=== PATIENT | female | born 1945 | race Caucasian/White ===

== ENCOUNTER → 2016-03-19 | Outpatient (CLI) | payer BC ==
[~2016-03-19] MED LIST: AMOX875T PO; ASCO500T16 PO; AZEL15GE TOP; BUPR100T8 PO; BUPRTAB PO; CHOL100010 PO; FNCG50 TOP; OMEG10007 PO
[2016-03-19 11:35] LABS: BLOOD UREA NITROGEN 17 mg/dl (7-18); BUN/CREATININE RATIO 15.8 (10-20); CALCIUM 9.1 mg/dl (8.5-10.1); CARBON DIOXIDE 27 mmol/L (21-32); CHLORIDE 105 mmol/L (98-107); GLUCOSE 102 mg/dl (70-99); POTASSIUM 3.7 mmol/L (3.5-5.1); SODIUM 139 mmol/L (136-145)
[2016-03-19 11:45] LABS: CHOLESTEROL 199 mg/dl (0-200); CHOLESTEROL/HDL RATIO 3.8; HDL CHOLESTEROL 53 mg/dl; LDL CHOLESTEROL CALCULATED 117 mg/dl; TRIGLYCERIDES 144 mg/dl (0-150); VERY LOW DENSITY LIPOPROT CALC 29 mg/dl
== END | disposition home or self-care (01) ==
LOC: C.LAB1850 10:20
PROVIDERS: ATTEND Internal Medicine Nephrology
DX: E78.5 Hyperlipidemia, unspecified (principal); N18.3 Chronic kidney disease, stage 3 (moderate); M85.80 Other specified disorders of bone density and structure, unspecified site

== ENCOUNTER 2016-09-02 22:13 | Inpatient (IN) | payer BC, OTHER ==
[~2016-09-02] VITALS: Ht 167.6 cm; Wt 68.2 kg
[~2016-09-02 22:13] MED LIST changes: -AMOX875T PO; -FNCG50 TOP
[2016-09-02 22:15] VITALS: Ht 167.6 cm; Wt 68.2 kg
[2016-09-02] MEDS ORDERED: FNCG50 TOP (22:39)
[2016-09-02 22:57] LABS: URINE APPEARANCE CLEAR (CLEAR); URINE BILIRUBIN NEG (NEG); URINE COLOR YELLOW; URINE EPITHELIAL CELL AUTO 0-5 /lpf (0-5); URINE NITRITE NEG (NEG); URINE SPECIFIC GRAVITY 1.015 (1.000-1.030); UROBILINOGEN NEG (NEG); ZZUR CULT IF INDIC CLEAN CATCH NO
[2016-09-02 22:58] LABS: MANUAL MICROSCOPIC REQUIRED? NO; REVIEW REQ? NO
[2016-09-02 22:58] LABS: BASO % 0.3 %; BASO ABS # 0.04 K/uL (0-0.2); COMPLETE YES; EOS % 1.7 %; HEMATOCRIT 39.6 % (37-47); IG% 0.2 %; LYMPH % 16.5 %; LYMPH ABS # 2.18 K/uL (1.2-3.4); MEAN CELL VOLUME 93.4 fL (80-100); MEAN CORPUSCULAR HEMOGLOBIN 31.6 pg (25-34); MEAN CORPUSCULAR HGB CONC 33.8 g/dl (32-36); MEAN PLATELET VOLUME 11.1 fL (7.4-10.4); MONO % 6.5 %; NEUT % 74.8 %; PLATELET COUNT 283 K/uL (130-400); RED BLOOD COUNT 4.24 M/uL (4.2-5.4); WHITE BLOOD COUNT 13.24 K/uL (4.8-10.8)
--- NOTE | 2016-09-02 23:03 | DIAGNOSTIC IMAGING REPORT ---
ABDOMEN 2VIEW W/PA CHEST RTN CLINICAL HISTORY: abd pain, diarrhea FEVER, BODY ACHES COMPARISON STUDY: 03/14/2013 FINDINGS: Erect chest reveals emphysema. As a hiatal hernia. There is no focal pulmonary consolidation. Wispy opacities in the left midlung zone are likely chronic.] Supine views the abdomen reveal no abnormally dilated loops of large or small bowel. There are no transition zones indicate bowel obstruction. There are few tiny calcifications projected over the right renal shadow. Small calculi cannot be excluded. IMPRESSION: No evidence of bowel obstruction. No evidence of free air. Electronically signed by: Que Toledo M.D. 09/02/2016 11:01 PM Dictated Date/Time: 09/02/2016 11:00 PM
[2016-09-02 23:16] LABS: BUN/CREATININE RATIO 15.7 (10-20); CALCIUM 8.7 mg/dl (8.5-10.1); CREATININE 1.2 mg/dl (0.60-1.20); POTASSIUM 3.5 mmol/L (3.5-5.1)
[2016-09-02 23:19] LABS: ALB/GLOB RATIO 0.9 (0.9-2)
[2016-09-03] VITALS (8 sets, daily range): BP systolic 81–116; BP diastolic 49–71; PULSE 83–98; TEMP 36.7–38.4; O2SAT 93–97; BMI 24.6
--- NOTE | 2016-09-03 00:03 | EMERGENCY ROOM VISIT NOTE ---
History First contact with patient: 22:22 Chief Complaint: ABDOMINAL PAIN Stated Complaint: ABD/LOW BACK/PELVIC PAIN,FEVER,BODY ACHES Nursing Triage Summary: Patient ambulatory to triage for evaluation. Gait is steady and upright. Patient states "I was at the [facility] earlier today. I have had GI symptoms and abdominal pain for a few weeks. I have had a low grade fever today. I thought I had a left ear ache/infection and I have had some body aches. I have had pretty severe abdominal pains; if I strain to have a BM, the pain is unbelieveable. I have rectal pain and lower back pain tonight." Patient denies nausea, vomiting. Patient reports hemorrhoids and thin BMs when she is able to go. Patient's last BM was three days ago, patient states "I am not constipated though." History of Present Illness The patient is a 71 year old female who presents to the Emergency Room with complaints of abdominal pain. The patient states that she has had symptoms intermittently for the past several months but have been worsening over the past 3 weeks. She states that for the past 3 days, she has had severe pain with bowel movements. She has both rectal pain and lower abdominal pain with bowel movements. She states that her bowel movements have been a thin stream. She has an appointment with her primary care provider tomorrow for the symptoms. However, she states that her pain worsened today which prompted her to come here. She reports she has been nauseous at times, but denies any nausea at this time. She has had a few episodes of having a small amount of blood in the bowel movements. She has stage III chronic kidney disease but states she is otherwise healthy. She reports she has had a left earache today. She denies any fevers or urinary symptoms. She rates her current discomfort a 1/10. She denies any history of abdominal surgery. Review of Systems A complete 10 point review of systems was reviewed with the patient with pertinent positives and negatives as per history of present illness. All else were negative. Past Medical/Surgical History Medical Problems: (1) Excisional biopsies of the breast (2) Gallstones (3) Uterine polypectomy Family History FHx: diabetes FHx: hypertension Social History Smoking Status: Never Smoker Alcohol Use: occasionally Drug Use: none Marital Status: Occupation Status: employed Current/Historical Medications Scheduled Azelaic Acid (Finacea), 1 APPLN TOP DAILY Bupropion Hcl (Wellbutrin Xl), 1 TAB PO QAM Allergies Coded Allergies: No Known Allergies (Unverified , 09/02/16) Physical Exam Vital Signs Date Time Temp Pulse Resp B/P (MAP) Pulse Ox O2 Delivery O2 Flow Rate FiO2 09/03/16 01:01 94 20 139/73 96 Room Air 09/02/16 23:52 86 20 120/63 97 Room Air 09/02/16 22:15 36.7 100 18 126/80 93 Room Air Physical Exam VITALS: Vitals are noted on the nurse's note and reviewed by myself. Vital signs stable. GENERAL: This is a 71-year-old female, in no acute distress, nondiaphoretic, well-developed well-nourished. SKIN: No pallor, no rashes. HEENT: Normocephalic. PERRLA. EOMI. bilateral tympanic membranes are pearly garcia without erythema or effusion. Mucous membranes moist. HEART: Regular rate and rhythm without murmurs gallops or rubs. LUNGS: Clear to auscultation bilaterally without wheezes, rales or rhonchi. No retractions or accessory muscle use. ABDOMEN: Positive bowel sounds x 4. Soft, mild tenderness to palpation of the left lower quadrant. No guarding or rebound tenderness. RECTAL: There are a few external hemorrhoids which are not thrombosed. Digital rectal exam unremarkable. No blood. NEURO: Patient was alert and oriented to person place and time. Medical Decision & Procedures ER Provider Diagnostic Interpretation: ABDOMEN 2VIEW W/PA CHEST RTN FINDINGS: Erect chest reveals emphysema. As a hiatal hernia. There is no focal pulmonary consolidation. Wispy opacities in the left midlung zone are likely chronic.] Supine views the abdomen reveal no abnormally dilated loops of large or small bowel. There are no transition zones indicate bowel obstruction. There are few tiny calcifications projected over the right renal shadow. Small calculi cannot be excluded. IMPRESSION: No evidence of bowel obstruction. No evidence of free air. CT ABDOMEN & PELVIS: (statrad interpretation) Diverticulosis with wall thickening and inflammatory changes involving the distal sigmoid colon compatible with diverticulitis. Air-containing outpouching at the anterior aspect possible prominent diverticulum possibility of contained perforation or early abscess not entirely excluded. No disseminated free air. No drainable fluid collections. Cholelithiasis. Moderate hiatal hernia. Additional incidental findings. Radiologist: Stacy Kirk MD Laboratory Results 09/02/16 22:40 Red Blood Count 4.24, Mean Corpuscular Volume 93.4, Mean Corpuscular Hemoglobin 31.6, Mean Corpuscular Hemoglobin Concent 33.8, Mean Platelet Volume 11.1, Neutrophils (%) (Auto) 74.8, Lymphocytes (%) (Auto) 16.5, Monocytes (%) (Auto) 6.5, Eosinophils (%) (Auto) 1.7, Basophils (%) (Auto) 0.3, Neutrophils # (Auto) 9.90, Lymphocytes # (Auto) 2.18, Monocytes # (Auto) 0.86, Eosinophils # (Auto) 0.23, Basophils # (Auto) 0.04 09/02/16 22:40 Test 09/02/16 22:30 09/02/16 22:40 Urine Color YELLOW Urine Appearance CLEAR (CLEAR) Urine pH 6.0 (4.5-7.5) Urine Specific [place] 1.015 (1.000-1.030) Urine Protein NEG (NEG) Urine Glucose (UA) NEG (NEG) Urine Ketones TRACE (NEG) Urine Occult Blood TRACE (NEG) Urine Nitrite NEG (NEG) Urine Bilirubin NEG (NEG) Urine Urobilinogen NEG (NEG) Urine Leukocyte Esterase NEG (NEG) Urine WBC (Auto) 1-5 /hpf (0-5) Urine RBC (Auto) 0-4 /hpf (0-4) Urine Hyaline Casts (Auto) 0 /lpf (0-5) Urine Epithelial Cells (Auto) 0-5 /lpf (0-5) Urine Bacteria (Auto) NEG (NEG) White Blood Count 13.24 K/uL (4.8-10.8) Red Blood Count 4.24 M/uL (4.2-5.4) Hemoglobin 13.4 g/dL (12.0-16.0) Hematocrit 39.6 % (37-47) Mean Corpuscular Volume 93.4 fL (80-100) Mean Corpuscular Hemoglobin 31.6 pg (25-34) Mean Corpuscular Hemoglobin Concent 33.8 g/dl (32-36) Platelet Count 283 K/uL (130-400) Mean Platelet Volume 11.1 fL (7.4-10.4) Neutrophils (%) (Auto) 74.8 % Lymphocytes (%) (Auto) 16.5 % Monocytes (%) (Auto) 6.5 % Eosinophils (%) (Auto) 1.7 % Basophils (%) (Auto) 0.3 % Neutrophils # (Auto) 9.90 K/uL (1.4-6.5) Lymphocytes # (Auto) 2.18 K/uL (1.2-3.4) Monocytes # (Auto) 0.86 K/uL (0.11-0.59) Eosinophils # (Auto) 0.23 K/uL (0-0.5) Basophils # (Auto) 0.04 K/uL (0-0.2) RDW Standard Deviation 43.4 fL (36.4-46.3) RDW Coefficient of Variation 12.7 % (11.5-14.5) Immature Granulocyte % (Auto) 0.2 % Immature Granulocyte # (Auto) 0.03 K/uL (0.00-0.02) Anion Gap 9.0 mmol/L (3-11) Est Creatinine Clear Calc Drug Dose 40.6 ml/min Estimated GFR () 53.4 Estimated GFR (Non- 46.1 BUN/Creatinine Ratio 15.7 (10-20) Calcium Level 8.7 mg/dl (8.5-10.1) Total Bilirubin 0.4 mg/dl (0.2-1) Aspartate Amino Transf (AST/SGOT) 12 U/L (15-37) Alanine Aminotransferase (ALT/SGPT) 20 U/L (12-78) Alkaline Phosphatase 87 U/L (45-117) Total Protein 7.6 gm/dl (6.4-8.2) Albumin 3.5 gm/dl (3.4-5.0) Globulin 4.1 gm/dl (2.5-4.0) Albumin/Globulin Ratio 0.9 (0.9-2) Lipase 172 U/L (73-393) Medications Administered Medications (Trade) Dose Ordered Sig/Salo Route Start Time Stop Time Status Last Admin Dose Admin Ciprofloxacin/ Dextrose (Cipro / D5W) 400 mg NOW STAT IV 09/03/16 01:02 09/03/16 01:03 DC 09/03/16 01:20 400 MG Metronidazole (Flagyl / Nss) 500 mg NOW STAT IV 09/03/16 01:02 09/03/16 01:03 DC 09/03/16 01:20 500 MG ED Course The patient was evaluated as above. Labs were drawn and IV access was obtained. The patient declined analgesics. I recommended CT scan, but the patient prefers not to have this done if possible. I agreed to start with laboratory studies and x-rays and will discuss need for CT after these returned. Abdominal series was unremarkable. Given leukocytosis, I do feel CT is necessary. The patient is agreeable. Patient was reevaluated and findings were discussed. She is agreeable to admission and again declined analgesics. Doses of Cipro and Flagyl were ordered. Case was discussed with the [facility], Dr. Bullock. He agreed to evaluate the patient for admission. Medical Decision Differential diagnosis includes diverticulitis, colitis, intra-abdominal abscess , hemorrhoids appendicitis, urinary tract infection, among others. The patient is a 71-year-old female who presents today complaining of abdominal pain, rectal pain and pain with bowel movements. Labs revealed a leukocytosis of 13,000. Labs are otherwise unremarkable. Patient was initially resistant to having a CT scan performed, but did eventually agree to it. CT was performed with no contrast due to the patient's history of chronic kidney disease and borderline creatinine. CT was read by helena and showed diverticulitis with findings suggestive of a small contained perforation versus abscess. Given this finding, the patient will need to be admitted for IV antibiotics. She was given initial doses of Cipro and Flagyl. Consultation was made with the pharmacist, who felt no renal dosing was needed. All findings were discussed with the patient. She verbalized her understanding. She will be evaluated by the [facility] in the ED for further evaluation. The patient's case was reviewed with Dr. Bonilla, ED attending physician, who agreed with my assessment and treatment plan. Medication reconciliation: I attest that I have personally reviewed the patient 's current medication list. Blood pressure screening: Patient was found to have normal blood pressure on screening and does not require follow-up. Impression Primary Impression: Sigmoid diverticulitis Departure Information Dispostion Admitted as an inpatient Referrals Sher Perez M.D. (PCP) Patient Instructions My [facility]
[2016-09-03] MEDS ORDERED: METRONIDAZOLE 500MG / 100ML NSS IV STA (01:02)
[2016-09-03] MEDS ORDERED: CIPROFLOXACIN 400MG / 200ML D5W IV STA (01:02)
--- NOTE | 2016-09-03 01:24 | EMERGENCY ROOM VISIT NOTE ---
ED Visit Note First contact with patient: 22:22 I have personally evaluated this patient examined her and reviewed the pertinent labs and data. I have discussed the case with Ira Anderson, the physician sales assistant and agree with the plan. Please refer to the PA note. This patient has left lower quadrant pain on my exam she is mildly tender but has no peritonitis. CAT scan was obtained and shows diverticulitis. There is possible early abscess. She looks well on exam however given the possibility of an abscess. I do think she needs IV antibiotics and further treatment and evaluation. We have ordered IV Cipro and IV Flagyl. The [facility] team was consulted to see her in the emergency department.
[2016-09-03] MEDS ORDERED: HYDROCORTISONE HC 2.5% CRM 30GM TUBE EXT PRN (02:00)
[2016-09-03] MEDS ORDERED: MAGNESIUM HYDROXIDE SUSP 30 ML UDC PO PRN (02:00)
[2016-09-03] MEDS ORDERED: ALUMINUM/MAGNESIUM/SIMETH (MAALOX MAX) 30 ML UDC PO PRN (02:00)
[2016-09-03] MEDS ORDERED: MoRPHine SULFATE 4 MG/ML 1 ML CARP\\VIAL IV PRN (02:00)
[2016-09-03] MEDS ORDERED: POLYETHYLENE (MIRALAX) 17 GM PACK PO PRN (02:00)
[2016-09-03] MEDS ORDERED: ANUSOL SUPP 1 EA PR PRN (02:00)
[2016-09-03] MEDS ORDERED: ONDANSETRON INJ 2 MG/ML 2 ML VIAL IV PRN (02:00)
[2016-09-03] MEDS: MoRPHine SULFATE 2 MG/ML CARP IV PRN ×3 (02:16→22:09)
--- NOTE | 2016-09-03 02:55 | History and Physical ---
History & Physical Date & Time of Service: Sep 03, 2016 at 02:29 Chief Complaint: Abd/Low Back/Pelvic Pain,Fever,Body Aches Primary Care Physician: Sher Perez M.D. History of Present Illness Source: patient Patient is a pleasant 71-year-old female, with back on history of CKD stage III , melanoma, anxiety/depression, mild asthma, presents the emergency department tonight with ongoing abdominal pain. She notes that this is not a new pain for her, that it is been on for the past several months. In addition she has had on and off episodes of diarrhea. These were frequent but intermittent and somewhat unpredictable, and was associated with mild lower abdominal pain. However in the past 3 days she notes that the pain has gotten much worse, and that it occurs much more predictably with bowel movements. At the present time she describing pain across her lower abdomen and pelvis, favoring more so left side as well as lower back pain. She describes as a sharp, currently 4 out of 10 pain. She states that at home prior to arrival the pain was getting much worse, rating it 9/10 particularly when she is trying to have bowel movements. She also reports an incomplete sense of voiding after sitting on the toilet for a bowel movement. In addition she reports a rectal discomfort, the states she has hemorrhoids. She does report 2 occasions of only a faint amount of pink tinge on her stool in the past couple days. She denies any dark tarry stool. She denies seeing any mucus in the stool. She denies ongoing nausea or vomiting. She states that she hated a restaurant 2 weeks ago and did have some nausea following that meal but has since been fine from this standpoint. She has not had any fevers chills or night sweats, though states that she feels warm. She's not had any changes in weight. There is no history of recent foreign travel and no recent use of antibiotics. States that she travels frequently between [place] in [place] to care for her daughter who has significant medical needs. She states her last colonoscopy was 10 years ago, this was done by Dr. Eckert. She's never had an EGD. Past Medical/Surgical History Chronic kidney disease Depression/anxiety History of melanoma, with excision 3 History of uterine polypectomy History of in vitro fertilization Medical Problems: (1) Excisional biopsies of the breast Status: Resolved (2) Gallstones Status: Chronic (3) Uterine polypectomy Status: Resolved Family History FHx: diabetes FHx: hypertension Social History Smoking Status: Never Smoker Smokeless Tobacco Use: No Alcohol Use: none Drug Use: none Marital Status: Housing status: lives with significant other Occupational Status: employed (psychologist) Multi-Drug Resistant Organisms History of MDRO: No Allergies Coded Allergies: No Known Allergies (Unverified , 09/02/16) Home Medications Scheduled Azelaic Acid (Finacea), 1 APPLN TOP DAILY Bupropion Hcl (Wellbutrin Xl), 1 TAB PO QAM Review of Systems 10 point review of systems was otherwise negative unless stated above in the history of present illness Physical Exam Vital Signs Date Time Temp Pulse Resp B/P (MAP) Pulse Ox O2 Delivery O2 Flow Rate FiO2 09/03/16 01:01 94 20 139/73 96 Room Air 09/02/16 23:52 86 20 120/63 97 Room Air 09/02/16 22:15 36.7 100 18 126/80 93 Room Air General Appearance: WD/WN, no apparent distress Head: normocephalic, atraumatic Eyes: PERRL, EOMI ENT: hearing grossly normal, pharynx normal, + pertinent finding (no obvious oral ulcers noted) Neck: supple, no adenopathy, no JVD Respiratory/Chest: lungs clear, no respiratory distress Cardiovascular: regular rate, rhythm, no gallop, no murmur Abdomen/GI: normal bowel sounds, soft, + tenderness (left iliac fossa greater than right iliac fossa; no masses; no guarding or rigidity), + pertinent finding (rectal exam per ED, external hemorrhoids, normal rectal examination, findings were not repeated) Back: no CVA tenderness, no muscle spasm Extremities/Musculoskelatal: no calf tenderness, no pedal edema Neurologic/Psych: alert, normal mood/affect, oriented x 3 Skin: normal color, warm/dry, no rash Lymphatic: no adenopathy Diagnostics Laboratory Results Results Past 24 Hours Test 09/02/16 22:30 09/02/16 22:40 Range/Units Urine Color YELLOW Urine Appearance CLEAR CLEAR Urine pH 6.0 4.5-7.5 Urine Specific [place] 1.015 1.000-1.030 Urine Protein NEG NEG Urine Glucose (UA) NEG NEG Urine Ketones TRACE NEG Urine Occult Blood TRACE NEG Urine Nitrite NEG NEG Urine Bilirubin NEG NEG Urine Urobilinogen NEG NEG Urine Leukocyte Esterase NEG NEG Urine WBC (Auto) 1-5 0-5 /hpf Urine RBC (Auto) 0-4 0-4 /hpf Urine Hyaline Casts (Auto) 0 0-5 /lpf Urine Epithelial Cells (Auto) 0-5 0-5 /lpf Urine Bacteria (Auto) NEG NEG White Blood Count 13.24 4.8-10.8 K/uL Red Blood Count 4.24 4.2-5.4 M/uL Hemoglobin 13.4 12.0-16.0 g/dL Hematocrit 39.6 37-47 % Mean Corpuscular Volume 93.4 80-100 fL Mean Corpuscular Hemoglobin 31.6 25-34 pg Mean Corpuscular Hemoglobin Concent 33.8 32-36 g/dl Platelet Count 283 130-400 K/uL Mean Platelet Volume 11.1 7.4-10.4 fL Neutrophils (%) (Auto) 74.8 % Lymphocytes (%) (Auto) 16.5 % Monocytes (%) (Auto) 6.5 % Eosinophils (%) (Auto) 1.7 % Basophils (%) (Auto) 0.3 % Neutrophils # (Auto) 9.90 1.4-6.5 K/uL Lymphocytes # (Auto) 2.18 1.2-3.4 K/uL Monocytes # (Auto) 0.86 0.11-0.59 K/uL Eosinophils # (Auto) 0.23 0-0.5 K/uL Basophils # (Auto) 0.04 0-0.2 K/uL RDW Standard Deviation 43.4 36.4-46.3 fL RDW Coefficient of Variation 12.7 11.5-14.5 % Immature Granulocyte % (Auto) 0.2 % Immature Granulocyte # (Auto) 0.03 0.00-0.02 K/uL Sodium Level 141 136-145 mmol/L Potassium Level 3.5 3.5-5.1 mmol/L Chloride Level 105 98-107 mmol/L Carbon Dioxide Level 27 21-32 mmol/L Anion Gap 9.0 3-11 mmol/L Blood Urea Nitrogen 19 7-18 mg/dl Creatinine 1.20 0.60-1.20 mg/dl Est Creatinine Clear Calc Drug Dose 40.6 ml/min Estimated GFR () 53.4 Estimated GFR (Non- 46.1 BUN/Creatinine Ratio 15.7 10-20 Random Glucose 137 70-99 mg/dl Calcium Level 8.7 8.5-10.1 mg/dl Total Bilirubin 0.4 0.2-1 mg/dl Aspartate Amino Transf (AST/SGOT) 12 15-37 U/L Alanine Aminotransferase (ALT/SGPT) 20 12-78 U/L Alkaline Phosphatase 87 45-117 U/L Total Protein 7.6 6.4-8.2 gm/dl Albumin 3.5 3.4-5.0 gm/dl Globulin 4.1 2.5-4.0 gm/dl Albumin/Globulin Ratio 0.9 0.9-2 Lipase 172 73-393 U/L Diagnostic Radiology ABDOMEN 2VIEW W/PA CHEST RTN CLINICAL HISTORY: abd pain, diarrhea FEVER, BODY ACHES COMPARISON STUDY: 03/14/2013 FINDINGS: Erect chest reveals emphysema. As a hiatal hernia. There is no focal pulmonary consolidation. Wispy opacities in the left midlung zone are likely chronic.] Supine views the abdomen reveal no abnormally dilated loops of large or small bowel. There are no transition zones indicate bowel obstruction. There are few tiny calcifications projected over the right renal shadow. Small calculi cannot be excluded. IMPRESSION: No evidence of bowel obstruction. No evidence of free air. CT abdomen (per stat rad) - Sigmoid diverticulitis\ - Air-containing outpouching Abscess versus contained perforation Impression Assessment and Plan (1) Sigmoid diverticulitis Assessment & Plan: - As noted on CT - Keep the patient nothing by mouth except medications; patient can have small sips of clears but ultimately needs bowel rest - IV Cipro and Flagyl - Morphine 2-4 mg IV every 4 hours when necessary for pain - Normal saline with 20 in the every KCl at 125 ML per hour - I will consult general surgery to follow along given CT report suggesting possible contained perforation, though at this time are not concerned that surgical intervention is required (2) Chronic diarrhea Assessment & Plan: - We'll check a C. difficile - We'll check a stool Gram stain, with ova and parasites - We'll place a consultation for GI, given the chronicity of her symptoms. States that her last colonoscopy was 10 years ago, and had GI's discretion may warrant endoscopy at this time (3) Hemorrhoids Assessment & Plan: - Anusol topical and rectal suppositories when necessary - Patient notes very small self-limited episodes of CA bleeding, as noted in the history We'll order Hemoccult H&H is appear stable, she is currently at her baseline Hb between 12-13 (4) CKD (chronic kidney disease), stage III Assessment & Plan: - Creatinine 1.2, currently at baseline - EGFR 46 - Avoid nephrotoxic medications; contrast imaging only if actually necessary - Monitor daily BMP (5) Depression Assessment & Plan: - Continue Wellbutrin DVT prophylaxis - Heparin 5000 units 3 times a day - SCD Code Status - Level I full code Disposition - Med/Surg Level of Care Med/Surg Resuscitation Status FULL RESUSCITATION VTE Prophylaxis VTE Risk Assessment Done? Y/N: Yes Risk Level: Moderate Given or contraindicated: Unfractionated heparin SQ Note Resident Physician Supervision Note: I was present with Dr. Adorno during the history and exam. I discussed the case with the resident and agree with the findings and plan as documented in the note. Any exceptions or clarifications are listed here: 71 y/o F CKD 3 - unnown etiology - presents with abdominal pain CT reveals sigmoid diverticulitis with possible abscess or perf. OE AAO x 3 CTAB Tender lower quadrants No CCE No deficits P: IVF, NPO Cipro/Flagyl Surgery consult Documented By: Maxx Bullock
[2016-09-03] MEDS: NSS + 20MEQ KCL 1000ML 1,000 ML IV SCH ×3 (03:31→19:38)
[2016-09-03 06:04] LABS: BASO % 0.2 %; BASO ABS # 0.02 K/uL (0-0.2); COMPLETE YES; EOS % 0.8 %; HEMATOCRIT 35.8 % (37-47); IG% 0.3 %; LYMPH % 10.9 %; MEAN CELL VOLUME 94.5 fL (80-100); MEAN CORPUSCULAR HEMOGLOBIN 30.9 pg (25-34); MEAN CORPUSCULAR HGB CONC 32.7 g/dl (32-36); MEAN PLATELET VOLUME 11.2 fL (7.4-10.4); MONO % 6.5 %; NEUT % 81.3 %; PLATELET COUNT 249 K/uL (130-400); RED BLOOD COUNT 3.79 M/uL (4.2-5.4); WHITE BLOOD COUNT 11.92 K/uL (4.8-10.8)
[2016-09-03] MEDS: HEPARIN SOD 5000 UNIT/0.5 ML CARP SQ SCH ×3 (06:05→21:52)
[2016-09-03 06:44] LABS: BUN/CREATININE RATIO 14.6 (10-20); CALCIUM 8.3 mg/dl (8.5-10.1); CREATININE 1.1 mg/dl (0.60-1.20); POTASSIUM 3.9 mmol/L (3.5-5.1)
--- NOTE | 2016-09-03 07:52 | DIAGNOSTIC IMAGING REPORT ---
CT SCAN OF THE ABDOMEN AND PELVIS WITHOUT IV CONTRAST CLINICAL HISTORY: Left lower quadrant abdominal pain. COMPARISON STUDY: Abdominal ultrasound dated 03/14/2013. TECHNIQUE: CT scan of the abdomen and pelvis is performed from the lung bases to the proximal femora. Images are reviewed in the axial, sagittal, and coronal planes. IV contrast was not administered for this examination as per the referring clinician. Note that the examination was performed in suboptimal fashion without oral and IV contrast. Automated dose control exposure was utilized. CT DOSE: 371.77 mGy.cm FINDINGS: Lung bases: The heart is normal in size and without pericardial effusion. The lung bases are clear. There is a moderate hiatal hernia. Liver: The unenhanced liver is normal in size, contour, and attenuation. There is no intrahepatic biliary ductal dilatation. A 10 mm cyst is incidentally noted in the inferior right lobe. Gallbladder: There are small calcified gallstones. The gallbladder is otherwise normal in appearance. Spleen: Normal in size and attenuation. Pancreas: The unenhanced pancreas is grossly unremarkable. Adrenal glands: Unremarkable. Kidneys: The unenhanced kidneys are atrophic and without hydronephrosis. There are no renal calculi identified. There is no evidence of contour deforming renal mass lesion. Abdominal vasculature: The abdominal aorta is normal in course and caliber noting moderate atherosclerotic calcification. Bowel: The small bowel and colon are normal in course and caliber. There is moderate sigmoid diverticulosis. There is wall thickening with significant pericolonic inflammation involving the sigmoid colon consistent with acute diverticulitis. The appendix is not clearly visualized. Peritoneum: There is no intraperitoneal free air or abdominal ascites. There is a small fat-containing umbilical hernia. Lymphadenopathy: None. Pelvic viscera: The bladder, uterus, and adnexa are normal as visualized. Skeletal structures: The skeletal structures are osteopenic. Mild lumbosacral spondylosis is observed. No lytic or blastic lesions are seen. IMPRESSION: 1. Suboptimal examination without oral and IV contrast. 2. Moderate sigmoid diverticulosis with evidence of acute sigmoid diverticulitis. No intraperitoneal free air is identified. There is no definite evidence of abscess on this unenhanced examination. 3. Cholelithiasis. 4. Moderate hiatal hernia. 5. Additional findings as above. Electronically signed by: Corey Espinoza M.D. 09/03/2016 7:50 AM Dictated Date/Time: 09/03/2016 7:45 AM
[2016-09-03] MEDS: BuPROPion XL 150 MG TABCR PO SCH (08:31)
--- NOTE | 2016-09-03 09:17 | Surgery Consultation ---
Consultation Date of Consultation: Sep 03, 2016. Attending Physician: Maxx Bullock M.D. Reason for Consultation: Acute sigmoid diverticulitis (Lana Lorenz PA-C) History of Present Illness Nancie is a pleasant 71 year-old female who presented to emergency department last evening complaining of left lower abdominal pain that was increasing in intensity. States she has had intermittent abdominal pain and cramping with bowel movements for the past month or so but nothing this severe. States pain began three days ago and continued to increase. Had associated diarrhea. Also states she has some rectal pain associated with it. States she does have history of hemorrhoids. States she thought she had a fever due to temp of 101 at home with her thermometer. No fever since admission. Denies of previous episodes of diverticulitis. Last colonoscopy was 10 years ago. Denies of vomiting, vomiting blood, or blood in stools. Had a CT scan of abdomen and pelvis without contrast given stage 3 chronic kidney disease. Shows thickening of the sigmoid colon with pericolonic inflammation consistent with acute diverticulitis. NO discrete abscess can be identified given no contrast. (Lana Lorenz PA-C) Past Medical/Surgical History Medical Problems: (1) Sigmoid diverticulitis Status: Acute (Lana Lorenz PA-C) Family History FHx: diabetes FHx: hypertension (Lana Lorenz PA-C) FHx: diabetes FHx: hypertension (Franki Miguel MD) Social History Smoking Status: Never Smoker Smokeless Tobacco Use: No Alcohol Use: none Drug Use: none Marital Status: Occupation Status: employed (psychologist) (Lana Lorenz PA-C) Allergies Coded Allergies: No Known Allergies (Unverified , 09/02/16) Home Medications Scheduled Azelaic Acid (Finacea), 1 APPLN TOP DAILY Bupropion Hcl (Wellbutrin Xl), 1 TAB PO QAM Current Inpatient Medications Current Inpatient Medications Medications (Trade) Dose Ordered Sig/Salo Route Start Time Stop Time Status Last Admin Dose Admin Heparin Sodium (Porcine) (Heparin Sq 5000 Unit/0.5ml) 5,000 unit Q8H SQ 09/03/16 06:00 10/03/16 05:59 09/03/16 06:05 5,000 UNIT Acetaminophen (Tylenol Tab) 650 mg Q4H PRN PO 09/03/16 02:00 10/03/16 01:59 Al Hydrox/Mg Hydrox/Simethicone (Maalox Max Susp) 15 ml Q4H PRN PO 09/03/16 02:00 10/03/16 01:59 Magnesium Hydroxide (Milk Of Magnesia Susp) 30 ml Q6H PRN PO 09/03/16 02:00 10/03/16 01:59 Polyethylene (Miralax Powder Packet) 17 gm DAILY PRN PO 09/03/16 02:00 10/03/16 01:59 Ondansetron HCl (Zofran Inj) 4 mg Q6H PRN IV 09/03/16 02:00 10/03/16 01:59 Ciprofloxacin/ Dextrose 400 mg/ Prmx 200 ml @ 100 mls/hr Q12H IV 09/03/16 12:00 09/13/16 11:59 Metronidazole 500 mg/Prmx 100 ml @ 100 mls/hr Q8H IV 09/03/16 10:00 09/13/16 09:59 Hard Fat/ Phenylephrine (Anusol Supp) 1 ea UD PRN [place] 09/03/16 02:00 10/03/16 01:59 Hydrocortisone (Proctozone Hc 2.5% Crm) 1 appln UD PRN EXT 09/03/16 02:00 10/03/16 01:59 Potassium Chloride/Sodium Chloride 1,000 ml @ 125 mls/hr Q8H IV 09/03/16 03:30 10/03/16 03:29 09/03/16 03:31 125 MLS/HR Bupropion HCl (Wellbutrin-Xl Tab) 150 mg QAM PO 09/03/16 09:00 10/03/16 08:59 Miscellaneous Information (Order Awaiting Action) 1 ea QS N/A 09/03/16 08:00 10/03/16 07:59 Morphine Sulfate (MoRPHine SULFATE INJ) 2 mg Q4H PRN IV 09/03/16 02:00 09/17/16 01:59 09/03/16 08:37 2 MG Morphine Sulfate (MoRPHine SULFATE INJ) 4 mg Q4H PRN IV 09/03/16 02:00 09/17/16 01:59 (Lana Lorenz JANETT MendozaC) Review of Systems Constitutional: + fever, No chills, No weight loss Respiratory: No cough, No shortness of breath Cardiovascular: No chest pain Abdomen: + pain (LLQ), + nausea, + diarrhea Genitourinary - Female: + urinary urgency, + urinary incontinence, No dysuria Hematologic / Lymphatic: No abnormal bleeding/bruising Integumentary: No rash (Lana Lorenz PA-C) Physical Exam Date Time Temp Pulse Resp B/P (MAP) Pulse Ox O2 Delivery O2 Flow Rate FiO2 09/03/16 06:59 36.9 83 16 94/60 (71) 93 Room Air 09/03/16 06:15 99/63 (75) 09/03/16 06:15 99/63 (75) 09/03/16 03:12 110/71 (84) 09/03/16 03:05 36.9 87 16 81/49 Room Air 09/03/16 02:51 84 20 107/54 95 Room Air 09/03/16 01:01 94 20 139/73 96 Room Air 09/02/16 23:52 86 20 120/63 97 Room Air 09/02/16 22:15 36.7 100 18 126/80 93 Room Air General Appearance: WD/WN, no apparent distress Head: normocephalic, atraumatic Eyes: sclerae normal ENT: hearing grossly normal Neck: trachea midline Respiratory/Chest: lungs clear, normal breath sounds, no respiratory distress, no accessory muscle use Cardiovascular: regular rate, rhythm, no murmur Abdomen/GI: soft, no organomegaly, no pulsatile mass, + tenderness (LLQ, no guarding, rigidity, or peritonitis) Back: normal inspection Extremities/Musculoskelatal: normal inspection Neurologic/Psych: alert, normal mood/affect, oriented x 3 Skin: normal color, warm/dry, no rash (Lana Lorenz PA-C) Laboratory Results Last 24 Hours Test 09/02/16 22:30 09/02/16 22:40 09/03/16 05:25 Urine Color YELLOW Urine Appearance CLEAR Urine pH 6.0 Urine Specific [place] 1.015 Urine Protein NEG Urine Glucose (UA) NEG Urine Ketones TRACE Urine Occult Blood TRACE Urine Nitrite NEG Urine Bilirubin NEG Urine Urobilinogen NEG Urine Leukocyte Esterase NEG Urine WBC (Auto) 1-5 /hpf Urine RBC (Auto) 0-4 /hpf Urine Hyaline Casts (Auto) 0 /lpf Urine Epithelial Cells (Auto) 0-5 /lpf Urine Bacteria (Auto) NEG White Blood Count 13.24 K/uL 11.92 K/uL Red Blood Count 4.24 M/uL 3.79 M/uL Hemoglobin 13.4 g/dL 11.7 g/dL Hematocrit 39.6 % 35.8 % Mean Corpuscular Volume 93.4 fL 94.5 fL Mean Corpuscular Hemoglobin 31.6 pg 30.9 pg Mean Corpuscular Hemoglobin Concent 33.8 g/dl 32.7 g/dl Platelet Count 283 K/uL 249 K/uL Mean Platelet Volume 11.1 fL 11.2 fL Neutrophils (%) (Auto) 74.8 % 81.3 % Lymphocytes (%) (Auto) 16.5 % 10.9 % Monocytes (%) (Auto) 6.5 % 6.5 % Eosinophils (%) (Auto) 1.7 % 0.8 % Basophils (%) (Auto) 0.3 % 0.2 % Neutrophils # (Auto) 9.90 K/uL 9.69 K/uL Lymphocytes # (Auto) 2.18 K/uL 1.30 K/uL Monocytes # (Auto) 0.86 K/uL 0.78 K/uL Eosinophils # (Auto) 0.23 K/uL 0.10 K/uL Basophils # (Auto) 0.04 K/uL 0.02 K/uL RDW Standard Deviation 43.4 fL 44.0 fL RDW Coefficient of Variation 12.7 % 12.7 % Immature Granulocyte % (Auto) 0.2 % 0.3 % Immature Granulocyte # (Auto) 0.03 K/uL 0.03 K/uL Sodium Level 141 mmol/L 139 mmol/L Potassium Level 3.5 mmol/L 3.9 mmol/L Chloride Level 105 mmol/L 105 mmol/L Carbon Dioxide Level 27 mmol/L 25 mmol/L Anion Gap 9.0 mmol/L 9.0 mmol/L Blood Urea Nitrogen 19 mg/dl 16 mg/dl Creatinine 1.20 mg/dl 1.10 mg/dl Est Creatinine Clear Calc Drug Dose 40.6 ml/min 44.3 ml/min Estimated GFR () 53.4 59.3 Estimated GFR (Non- 46.1 51.2 BUN/Creatinine Ratio 15.7 14.6 Random Glucose 137 mg/dl 98 mg/dl Calcium Level 8.7 mg/dl 8.3 mg/dl Total Bilirubin 0.4 mg/dl Aspartate Amino Transf (AST/SGOT) 12 U/L Alanine Aminotransferase (ALT/SGPT) 20 U/L Alkaline Phosphatase 87 U/L Total Protein 7.6 gm/dl Albumin 3.5 gm/dl Globulin 4.1 gm/dl Albumin/Globulin Ratio 0.9 Lipase 172 U/L (Lana Lorenz ., SHERRIE) Assessment & Plan CT SCAN OF THE ABDOMEN AND PELVIS WITHOUT IV CONTRAST CLINICAL HISTORY: Left lower quadrant abdominal pain. COMPARISON STUDY: Abdominal ultrasound dated 03/14/2013. TECHNIQUE: CT scan of the abdomen and pelvis is performed from the lung bases to the proximal femora. Images are reviewed in the axial, sagittal, and coronal planes. IV contrast was not administered for this examination as per the referring clinician. Note that the examination was performed in suboptimal fashion without oral and IV contrast. Automated dose control exposure was utilized. CT DOSE: 371.77 mGy.cm FINDINGS: Lung bases: The heart is normal in size and without pericardial effusion. The lung bases are clear. There is a moderate hiatal hernia. Liver: The unenhanced liver is normal in size, contour, and attenuation. There is no intrahepatic biliary ductal dilatation. A 10 mm cyst is incidentally noted in the inferior right lobe. Gallbladder: There are small calcified gallstones. The gallbladder is otherwise normal in appearance. Spleen: Normal in size and attenuation. Pancreas: The unenhanced pancreas is grossly unremarkable. Adrenal glands: Unremarkable. Kidneys: The unenhanced kidneys are atrophic and without hydronephrosis. There are no renal calculi identified. There is no evidence of contour deforming renal mass lesion. Abdominal vasculature: The abdominal aorta is normal in course and caliber noting moderate atherosclerotic calcification. Bowel: The small bowel and colon are normal in course and caliber. There is moderate sigmoid diverticulosis. There is wall thickening with significant pericolonic inflammation involving the sigmoid colon consistent with acute diverticulitis. The appendix is not clearly visualized. Peritoneum: There is no intraperitoneal free air or abdominal ascites. There is a small fat-containing umbilical hernia. Lymphadenopathy: None. Pelvic viscera: The bladder, uterus, and adnexa are normal as visualized. Skeletal structures: The skeletal structures are osteopenic. Mild lumbosacral spondylosis is observed. No lytic or blastic lesions are seen. IMPRESSION: 1. Suboptimal examination without oral and IV contrast. 2. Moderate sigmoid diverticulosis with evidence of acute sigmoid diverticulitis. No intraperitoneal free air is identified. There is no definite evidence of abscess on this unenhanced examination. 3. Cholelithiasis. 4. Moderate hiatal hernia. 5. Additional findings as above. DIAGNOSIS: Acute Sigmoid Diverticulitis -afebrile since admission - vitals stable - Leukocytosis improving 11.92 today - CT scan showing sigmoid wall thickening and pericolonic inflammation, no free intraperitoneal air - Abdominal examination shows no peritonitis, rigidity or rebound. There is some LLQ tenderness on light palpation and some voluntary guarding of the LLQ Plan: Continue conservative management at this time: Iv fluids, NPO, IV antibiotics of Cipro/Flagyl, and IV pain management as needed Encourage slow ambulation Trend white count Will continue to monitor Dr. Miguel has seen and examined patient, agrees with above (Lana Lorenz ., PA-C) I saw the patient and agree with the plan. Franki Miguel MD (Franki Miguel MD)
[2016-09-03] MEDS: METRONIDAZOLE / NSS 500 MG in PREMIXED NSS 100 ML IV SCH ×2 (10:20→17:34)
[2016-09-03] MEDS: CIPROFLOXACIN / D5W 400 MG in PREMIXED IN D5W 200 ML IV SCH (11:28)
[2016-09-03] MEDS: ACETAMINOPHEN 325 MG TAB PO PRN ×2 (13:12→23:05)
--- NOTE | 2016-09-03 14:39 | Family Medicine Progress Note ---
Progress Note Date of Service Sep 03, 2016. Subjective Pt evaluation today including: conversation w/ patient, physical exam, chart review, lab review, review of studies, review of inpatient medication list Pain: 3/10 abdominal pain PO Intake: NPO except meds Voiding: no voiding problems Patient reported mild 3/10 abdominal pain in LLQ following morphine injection. She feels better in general She denies passage of stool, denies N/V, fevers, chills Constitutional: No fever, No chills, No weakness Respiratory: No cough, No sputum Cardiovascular: No chest pain, No edema, No palpitations Abdomen: + pain (LLQ), No nausea, No vomiting Female : + urinary frequency, No dysuria Skin: No rash, No itch Medications Current Inpatient Medications Medications (Trade) Dose Ordered Sig/Salo Route Start Time Stop Time Status Last Admin Dose Admin Heparin Sodium (Porcine) (Heparin Sq 5000 Unit/0.5ml) 5,000 unit Q8H SQ 09/03/16 06:00 10/03/16 05:59 09/03/16 13:16 5,000 UNIT Acetaminophen (Tylenol Tab) 650 mg Q4H PRN PO 09/03/16 02:00 10/03/16 01:59 09/03/16 13:12 650 MG Al Hydrox/Mg Hydrox/Simethicone (Maalox Max Susp) 15 ml Q4H PRN PO 09/03/16 02:00 10/03/16 01:59 Magnesium Hydroxide (Milk Of Magnesia Susp) 30 ml Q6H PRN PO 09/03/16 02:00 10/03/16 01:59 Polyethylene (Miralax Powder Packet) 17 gm DAILY PRN PO 09/03/16 02:00 10/03/16 01:59 Ondansetron HCl (Zofran Inj) 4 mg Q6H PRN IV 09/03/16 02:00 10/03/16 01:59 Ciprofloxacin/ Dextrose 400 mg/ Prmx 200 ml @ 100 mls/hr Q12H IV 09/03/16 12:00 09/13/16 11:59 09/03/16 11:28 100 MLS/HR Metronidazole 500 mg/Prmx 100 ml @ 100 mls/hr Q8H IV 09/03/16 10:00 09/13/16 09:59 09/03/16 10:20 100 MLS/HR Hard Fat/ Phenylephrine (Anusol Supp) 1 ea UD PRN [place] 09/03/16 02:00 10/03/16 01:59 Hydrocortisone (Proctozone Hc 2.5% Crm) 1 appln UD PRN EXT 09/03/16 02:00 10/03/16 01:59 Potassium Chloride/Sodium Chloride 1,000 ml @ 125 mls/hr Q8H IV 09/03/16 03:30 10/03/16 03:29 09/03/16 11:23 125 MLS/HR Bupropion HCl (Wellbutrin-Xl Tab) 150 mg QAM PO 09/03/16 09:00 10/03/16 08:59 Miscellaneous Information (Order Awaiting Action) 1 ea QS N/A 09/03/16 08:00 10/03/16 07:59 Morphine Sulfate (MoRPHine SULFATE INJ) 2 mg Q4H PRN IV 09/03/16 02:00 09/17/16 01:59 09/03/16 08:37 2 MG Morphine Sulfate (MoRPHine SULFATE INJ) 4 mg Q4H PRN IV 09/03/16 02:00 09/17/16 01:59 Objective Vital Signs Date Time Temp Pulse Resp B/P (MAP) Pulse Ox O2 Delivery O2 Flow Rate FiO2 09/03/16 08:30 Room Air 09/03/16 06:59 36.9 83 16 94/60 (71) 93 Room Air 09/03/16 06:15 99/63 (75) 09/03/16 06:15 99/63 (75) 09/03/16 03:12 110/71 (84) 09/03/16 03:05 36.9 87 16 81/49 Room Air 09/03/16 02:51 84 20 107/54 95 Room Air 09/03/16 01:01 94 20 139/73 96 Room Air 09/02/16 23:52 86 20 120/63 97 Room Air 09/02/16 22:15 36.7 100 18 126/80 93 Room Air Physical Exam General Appearance: WD/WN, + mild distress Eyes: normal inspection, PERRL, EOMI Neck: supple, no adenopathy, trachea midline Respiratory/Chest: lungs clear, normal breath sounds, no respiratory distress Cardiovascular: regular rate, rhythm, no murmur Abdomen: normal bowel sounds, soft, no organomegaly, + tenderness (LLQ), + pertinent finding (no rebound, no rigidity, +voluntary guarding) Extremities: normal inspection, no pedal edema, no calf tenderness Neurologic/Psychiatric: alert, normal mood/affect, oriented x 3 Skin: normal color, warm/dry, no rash Laboratory Results Results Past 24 Hours Test 09/02/16 22:30 09/02/16 22:40 09/03/16 05:25 Range/Units Urine Color YELLOW Urine Appearance CLEAR CLEAR Urine pH 6.0 4.5-7.5 Urine Specific [place] 1.015 1.000-1.030 Urine Protein NEG NEG Urine Glucose (UA) NEG NEG Urine Ketones TRACE NEG Urine Occult Blood TRACE NEG Urine Nitrite NEG NEG Urine Bilirubin NEG NEG Urine Urobilinogen NEG NEG Urine Leukocyte Esterase NEG NEG Urine WBC (Auto) 1-5 0-5 /hpf Urine RBC (Auto) 0-4 0-4 /hpf Urine Hyaline Casts (Auto) 0 0-5 /lpf Urine Epithelial Cells (Auto) 0-5 0-5 /lpf Urine Bacteria (Auto) NEG NEG White Blood Count 13.24 11.92 4.8-10.8 K/uL Red Blood Count 4.24 3.79 4.2-5.4 M/uL Hemoglobin 13.4 11.7 12.0-16.0 g/dL Hematocrit 39.6 35.8 37-47 % Mean Corpuscular Volume 93.4 94.5 80-100 fL Mean Corpuscular Hemoglobin 31.6 30.9 25-34 pg Mean Corpuscular Hemoglobin Concent 33.8 32.7 32-36 g/dl Platelet Count 283 249 130-400 K/uL Mean Platelet Volume 11.1 11.2 7.4-10.4 fL Neutrophils (%) (Auto) 74.8 81.3 % Lymphocytes (%) (Auto) 16.5 10.9 % Monocytes (%) (Auto) 6.5 6.5 % Eosinophils (%) (Auto) 1.7 0.8 % Basophils (%) (Auto) 0.3 0.2 % Neutrophils # (Auto) 9.90 9.69 1.4-6.5 K/uL Lymphocytes # (Auto) 2.18 1.30 1.2-3.4 K/uL Monocytes # (Auto) 0.86 0.78 0.11-0.59 K/uL Eosinophils # (Auto) 0.23 0.10 0-0.5 K/uL Basophils # (Auto) 0.04 0.02 0-0.2 K/uL RDW Standard Deviation 43.4 44.0 36.4-46.3 fL RDW Coefficient of Variation 12.7 12.7 11.5-14.5 % Immature Granulocyte % (Auto) 0.2 0.3 % Immature Granulocyte # (Auto) 0.03 0.03 0.00-0.02 K/uL Sodium Level 141 139 136-145 mmol/L Potassium Level 3.5 3.9 3.5-5.1 mmol/L Chloride Level 105 105 98-107 mmol/L Carbon Dioxide Level 27 25 21-32 mmol/L Anion Gap 9.0 9.0 3-11 mmol/L Blood Urea Nitrogen 19 16 7-18 mg/dl Creatinine 1.20 1.10 0.60-1.20 mg/dl Est Creatinine Clear Calc Drug Dose 40.6 44.3 ml/min Estimated GFR () 53.4 59.3 Estimated GFR (Non- 46.1 51.2 BUN/Creatinine Ratio 15.7 14.6 10-20 Random Glucose 137 98 70-99 mg/dl Calcium Level 8.7 8.3 8.5-10.1 mg/dl Total Bilirubin 0.4 0.2-1 mg/dl Aspartate Amino Transf (AST/SGOT) 12 15-37 U/L Alanine Aminotransferase (ALT/SGPT) 20 12-78 U/L Alkaline Phosphatase 87 45-117 U/L Total Protein 7.6 6.4-8.2 gm/dl Albumin 3.5 3.4-5.0 gm/dl Globulin 4.1 2.5-4.0 gm/dl Albumin/Globulin Ratio 0.9 0.9-2 Lipase 172 73-393 U/L Assessment and Plan 71 yo F with previous confirmed diverticulosis on colonoscopy, hx of 1month of intermittent abdominal pain presenting with worsening abdominal pain x3 days, diarrhea x1wk , afebrile with leukocytosis , admitted with Diverticulitis confirmed on CT , placed on IV Cipro and IV Levaquin , clinically improving, currently NPO, Surgery on board Diverticulitis - CT consistent with sigmoid diverticulitis -afebrile, pain controlled with PRN Morphine, -diarrhea resolved Leukocytosis trending down -C/w IV Cipro, IV Levaquin -F.u Stool cx's, C diff when collected -NPO with ice chips -IV fluids -Surgery consulted - CKD Stage III -stable -Cr 1.1 -F/u repeat BMP Depression -c/w Wellbutrin DVT prophylaxis -Heparin, SCD Resident Physician Supervision Note: I was present with Dr. Cui during the history and exam. I discussed the case with the resident and agree with the findings and plan as documented in the note. She remains afebrile and notes less abdominal pain compared to admission. Could consider clears this evening, but would continue IV antibiotics until reassessment tomorrow morning. Documented By: Anand Gregory Continued [facility] stay due to: multiple IV medications needed Discharge planning: home Resident Tracking Resident Involvement: Resident Care Provided Care Provided: Adult Hospital Medicine
--- NOTE | 2016-09-03 22:47 | GASTROINTESTINAL CONSULTATION ---
DATE OF CONSULTATION: 09/03/2016 CHIEF COMPLAINT: Left lower quadrant abdominal pain. HISTORY OF PRESENT ILLNESS: Mrs. Chaudhry is a 71-year-old white female who reports history of a few months of abdominal pain. This has also led to some slight change in her bowel habits such that she has had loose stools at times. She had no prior antibiotic coverage for any symptoms, but ultimately because of the abdominal pain, she presented to the Emergency Room and by CAT scan was found to have evidence of sigmoid diverticulosis along with sigmoid diverticulitis. An obvious perforation or abscess was not identified. The patient was started on antibiotics. The patient does not recall any prior histories of diverticulitis and seems to recall having had a colonoscopy by Dr. Eckert in [place] and also she believes one locally, although I am unable to find that report in the [facility] record. She may have had these at [facility]. The patient denies any weight loss with these symptoms chronically. There is no family history of inflammatory bowel disease. PAST MEDICAL HISTORY: Includes stage III chronic kidney disease, melanoma for which she had 3 events that were all superficial. She also has a history of mild asthma. Depression, uterine polypectomy, in vitro fertilization. On admission through the Emergency Room, she did not have a fever. There has been no rectal bleeding associated with her stool pattern. She does not report dysuria or hematuria and has not had nausea or vomiting. FAMILY HISTORY: Significant for diabetes, hypertension, although there is no history of colon cancer. Her daughter has a form of MS and perhaps muscular dystrophy and Carmen-Danlos syndrome. SOCIAL HISTORY: The patient denies tobacco usage. Drinks a couple alcoholic beverages a week. The patient works as a psychologist locally. Is , with 2 children. HOME MEDICATIONS: Wellbutrin and azelaic acid/Finacea. ALLERGIES: Has no known drug allergies. REVIEW OF SYSTEMS: Otherwise noncontributory based on 14-point exam except for mentioned above. She denies dysuria, hematuria, history of kidney stones, rashes. There is melanoma as described above. PHYSICAL EXAMINATION: VITAL SIGNS: On admission, afebrile at 36.7, heart rate 100, respirations 18, blood pressure 126/80, she is 93% on room air. GENERAL: The patient is awake, alert and oriented x3, resting comfortably in bed. HEENT: The oral mucosa is moist. HEART: Normal S1, S2. LUNGS: Clear to auscultation without rales, rhonchi or wheeze. ABDOMEN: Soft, flat, mildly tender in the left lower quadrant region without rebound or guarding. There are no areas of induration. There are no features to suggest ascites. There are no abdominal bruits. EXTREMITIES: Without clubbing, cyanosis or edema. RECTAL: Deferred at this time. NEUROLOGIC: Nonfocal. Urinalysis showed no evidence for a UTI, although there are trace ketones and trace blood noted. LABORATORY STUDIES: White count on admission 13.2 with hemoglobin of 13.4, platelets are 283,000. Potassium 3.5, BUN and creatinine of 19 and 1.2. Total bilirubin 0.4, AST 12, ALT 20, alk phos 87, albumin 3.5, lipase 172. IMAGING DATA: CT scan as described above. There is no evidence for abscess or perforation based on final interpretation. IMPRESSION: Mrs. Chaudhry is a 71-year-old white female with evidence of clinical and radiologic sigmoid diverticulitis without evidence of perforation. She has not had attacks of these in the past. She seems to recall an upper endoscopy and a colonoscopy, although the timeframe of this is unclear. I would continue the current antibiotic regimen that includes Cipro and Flagyl and pain management. Hydration for her renal dysfunction and await the results of stool including C. diff and Giardia. Once the diverticulitis has settled down over the next 4-6 weeks, then a colonoscopy is prudent and can be performed as an outpatient. If her gastrointestinal symptoms change, then additional testing may be prudent. I will review office records for her prior endoscopic examinations. All questions answered. LIZETTED
[2016-09-04] MEDS: CIPROFLOXACIN / D5W 400 MG in PREMIXED IN D5W 200 ML IV SCH ×2 (00:17→12:02)
[2016-09-04 00:20] VITALS: TEMP 37.7
[2016-09-04] MEDS: METRONIDAZOLE / NSS 500 MG in PREMIXED NSS 100 ML IV SCH ×3 (02:21→18:09)
[2016-09-04] MEDS: NSS + 20MEQ KCL 1000ML 1,000 ML IV SCH ×3 (03:20→19:21)
[2016-09-04] MEDS: HEPARIN SOD 5000 UNIT/0.5 ML CARP SQ SCH ×3 (05:36→21:31)
[2016-09-04 07:16] LABS: BASO % 0.3 %; BASO ABS # 0.03 K/uL (0-0.2); COMPLETE YES; EOS % 1.1 %; HEMATOCRIT 33.4 % (37-47); IG% 0.3 %; LYMPH % 10.8 %; LYMPH ABS # 1.23 K/uL (1.2-3.4); MEAN CELL VOLUME 95.4 fL (80-100); MEAN CORPUSCULAR HGB CONC 33.5 g/dl (32-36); MEAN PLATELET VOLUME 10.6 fL (7.4-10.4); MONO % 6.4 %; NEUT % 81.1 %; PLATELET COUNT 222 K/uL (130-400); WHITE BLOOD COUNT 11.38 K/uL (4.8-10.8)
[2016-09-04 07:30] VITALS: BP 95/60; PULSE 94; TEMP 37.7; O2SAT 94
[2016-09-04 07:51] LABS: BUN/CREATININE RATIO 13.4 (10-20); CALCIUM 8.5 mg/dl (8.5-10.1); CREATININE 0.97 mg/dl (0.60-1.20)
[2016-09-04] MEDS: BuPROPion XL 150 MG TABCR PO SCH (08:07)
--- NOTE | 2016-09-04 08:56 | Family Medicine Progress Note ---
Progress Note Date of Service Sep 04, 2016. Subjective Pt evaluation today including: conversation w/ patient, physical exam, chart review, lab review, review of studies, review of inpatient medication list Pain: bladder discomfort PO Intake: NPO with ice chips Voiding: no voiding problems Patient developed fever overnight, up to 38.4. has been getting tylenol. , abdo pain improved, now 2/10 intensity, also reports bladder discomfort. \ Constitutional: + fever, No chills Cardiovascular: No chest pain, No palpitations Skin: No rash, No itch Medications Current Inpatient Medications Medications (Trade) Dose Ordered Sig/Salo Route Start Time Stop Time Status Last Admin Dose Admin Heparin Sodium (Porcine) (Heparin Sq 5000 Unit/0.5ml) 5,000 unit Q8H SQ 09/03/16 06:00 10/03/16 05:59 09/04/16 05:36 5,000 UNIT Acetaminophen (Tylenol Tab) 650 mg Q4H PRN PO 09/03/16 02:00 10/03/16 01:59 09/03/16 23:05 650 MG Al Hydrox/Mg Hydrox/Simethicone (Maalox Max Susp) 15 ml Q4H PRN PO 09/03/16 02:00 10/03/16 01:59 Magnesium Hydroxide (Milk Of Magnesia Susp) 30 ml Q6H PRN PO 09/03/16 02:00 10/03/16 01:59 Polyethylene (Miralax Powder Packet) 17 gm DAILY PRN PO 09/03/16 02:00 10/03/16 01:59 Ondansetron HCl (Zofran Inj) 4 mg Q6H PRN IV 09/03/16 02:00 10/03/16 01:59 Ciprofloxacin/ Dextrose 400 mg/ Prmx 200 ml @ 100 mls/hr Q12H IV 09/03/16 12:00 09/13/16 11:59 09/04/16 00:17 100 MLS/HR Metronidazole 500 mg/Prmx 100 ml @ 100 mls/hr Q8H IV 09/03/16 10:00 09/13/16 09:59 09/04/16 02:21 100 MLS/HR Hard Fat/ Phenylephrine (Anusol Supp) 1 ea UD PRN MA 09/03/16 02:00 10/03/16 01:59 Hydrocortisone (Proctozone Hc 2.5% Crm) 1 appln UD PRN EXT 09/03/16 02:00 10/03/16 01:59 Potassium Chloride/Sodium Chloride 1,000 ml @ 125 mls/hr Q8H IV 09/03/16 03:30 10/03/16 03:29 09/04/16 03:20 125 MLS/HR Bupropion HCl (Wellbutrin-Xl Tab) 150 mg QAM PO 09/03/16 09:00 10/03/16 08:59 09/04/16 08:07 150 MG Miscellaneous Information (Order Awaiting Action) 1 ea QS N/A 09/03/16 08:00 10/03/16 07:59 Morphine Sulfate (MoRPHine SULFATE INJ) 2 mg Q4H PRN IV 09/03/16 02:00 09/17/16 01:59 09/03/16 22:09 2 MG Morphine Sulfate (MoRPHine SULFATE INJ) 4 mg Q4H PRN IV 09/03/16 02:00 09/17/16 01:59 Objective Vital Signs Date Time Temp Pulse Resp B/P (MAP) Pulse Ox O2 Delivery O2 Flow Rate FiO2 09/04/16 07:30 37.7 94 16 95/60 (72) 94 Room Air 09/04/16 00:20 37.7 09/03/16 23:00 38.4 98 16 91/55 (67) 95 Room Air 09/03/16 20:58 37.6 95 18 116/55 (75) 97 Room Air 09/03/16 19:35 Room Air 09/03/16 15:31 36.7 83 16 102/66 (78) 93 Room Air Physical Exam General Appearance: WD/WN, no apparent distress Eyes: normal inspection, PERRL, EOMI Neck: supple, no carotid bruits, trachea midline Respiratory/Chest: lungs clear, normal breath sounds, no respiratory distress Cardiovascular: regular rate, rhythm, no murmur Abdomen: normal bowel sounds, soft, + pertinent finding (suprapubic tenderness) Extremities: no pedal edema, no calf tenderness Neurologic/Psychiatric: alert, normal mood/affect, oriented x 3 Skin: normal color, warm/dry Laboratory Results Results Past 24 Hours Test 09/03/16 17:40 09/04/16 07:00 09/04/16 09:10 09/04/16 17:00 Range/Units Stool Occult Blood NEGATIVE NEGATIVE White Blood Count 11.38 4.8-10.8 K/uL Red Blood Count 3.50 4.2-5.4 M/uL Hemoglobin 11.2 12.0-16.0 g/dL Hematocrit 33.4 37-47 % Mean Corpuscular Volume 95.4 80-100 fL Mean Corpuscular Hemoglobin 32.0 25-34 pg Mean Corpuscular Hemoglobin Concent 33.5 32-36 g/dl Platelet Count 222 130-400 K/uL Mean Platelet Volume 10.6 7.4-10.4 fL Neutrophils (%) (Auto) 81.1 % Lymphocytes (%) (Auto) 10.8 % Monocytes (%) (Auto) 6.4 % Eosinophils (%) (Auto) 1.1 % Basophils (%) (Auto) 0.3 % Neutrophils # (Auto) 9.23 1.4-6.5 K/uL Lymphocytes # (Auto) 1.23 1.2-3.4 K/uL Monocytes # (Auto) 0.73 0.11-0.59 K/uL Eosinophils # (Auto) 0.13 0-0.5 K/uL Basophils # (Auto) 0.03 0-0.2 K/uL RDW Standard Deviation 45.2 36.4-46.3 fL RDW Coefficient of Variation 13.0 11.5-14.5 % Immature Granulocyte % (Auto) 0.3 % Immature Granulocyte # (Auto) 0.03 0.00-0.02 K/uL Sodium Level 141 136-145 mmol/L Potassium Level 4.0 3.5-5.1 mmol/L Chloride Level 109 98-107 mmol/L Carbon Dioxide Level 22 21-32 mmol/L Anion Gap 10.0 3-11 mmol/L Blood Urea Nitrogen 13 7-18 mg/dl Creatinine 0.97 0.60-1.20 mg/dl Est Creatinine Clear Calc Drug Dose 50.3 ml/min Estimated GFR () 69.1 Estimated GFR (Non- 59.6 BUN/Creatinine Ratio 13.4 10-20 Random Glucose 85 70-99 mg/dl Calcium Level 8.5 8.5-10.1 mg/dl Urine Color YELLOW Urine Appearance CLEAR CLEAR Urine pH 5.0 4.5-7.5 Urine Specific [place] 1.013 1.000-1.030 Urine Protein NEG NEG Urine Glucose (UA) NEG NEG Urine Ketones 1+ NEG Urine Occult Blood NEG NEG Urine Nitrite NEG NEG Urine Bilirubin NEG NEG Urine Urobilinogen NEG NEG Urine Leukocyte Esterase NEG NEG Microbiology Results 09/03/16 WBC Smear - Final, Resulted 09/03/16 Shiga Toxin Test - Preliminary, Resulted No E. Coli shiga toxin 1 or shiga tox... 09/03/16 Stool Culture - Preliminary, Resulted NO SALMONELLA ISOLATED TO DATE,... 09/03/16 C.difficile Toxin B Gene (PCR) - Final, Complete Assessment and Plan 71 yo F with previous confirmed diverticulosis on colonoscopy, hx of 1 month of intermittent abdominal pain presenting with worsening abdominal pain x3 days, diarrhea x1wk , afebrile with leukocytosis , admitted with Diverticulitis confirmed on CT , placed on IV Cipro and IV Levaquin , clinically improving, currently NPO with ice chips Diverticulitis -improved on exam from arrival - CT consistent with sigmoid diverticulitis -afebrile, pain controlled -diarrhea resolved Leukocytosis trending down -C/w -IV fluids, IV Cipro, IV Levaquin -F.u Stool cx's, C diff when collected -Advance to clears CKD Stage III -stable -Cr .97 Depression -c/w Wellbutrin DVT prophylaxis -Heparin, SCD Resident Physician Supervision Note: I examined and obtained a history from this patient. I discussed the case with the resident and agree with the findings and plan as documented in the note. Any exceptions or clarifications are listed here: Please see my additional documentation in a separate progress note of the same date. Documented By: Anand Gregory Continued [facility] stay due to: multiple IV medications needed Discharge planning: home Resident Tracking Resident Involvement: Resident Care Provided Care Provided: Adult Hospital Medicine
--- NOTE | 2016-09-04 09:33 | Surgery Progress Note ---
Surgery Progress Note Date of Service Sep 04, 2016. Subjective Post OP Day: HD # 1 + feeling well, + complaints (abdominal pain improved, now currently 1-2/10 still more in LLQ), + bowel movement (very small bowel movements, diarrhea), + pain controlled, No chest pain, No SOB, No nausea, No vomiting Had fever overnight as high as 38.4, received PO Tylenol 650 mg one time last evening Bladder discomfort Objective Vital Signs: Date Time Temp Pulse Resp B/P (MAP) Pulse Ox O2 Delivery O2 Flow Rate FiO2 09/04/16 07:30 37.7 94 16 95/60 (72) 94 Room Air 09/04/16 00:20 37.7 09/03/16 23:00 38.4 98 16 91/55 (67) 95 Room Air 09/03/16 20:58 37.6 95 18 116/55 (75) 97 Room Air 09/03/16 19:35 Room Air 09/03/16 15:31 36.7 83 16 102/66 (78) 93 Room Air General Appearance: WD/WN, no apparent distress Head: normocephalic, atraumatic Neck: trachea midline Respiratory/Chest: lungs clear, normal breath sounds, no respiratory distress, no accessory muscle use Cardiovascular: regular rate, rhythm, no murmur Abdomen: non distended, soft, + tenderness (LLQ, no rebound, guarding, or peritonitis) Extremities: normal inspection Laboratory Results: Results Past 24 Hours Test 09/03/16 17:40 09/04/16 07:00 09/04/16 09:10 Range/Units Stool Occult Blood NEGATIVE NEGATIVE White Blood Count 11.38 4.8-10.8 K/uL Red Blood Count 3.50 4.2-5.4 M/uL Hemoglobin 11.2 12.0-16.0 g/dL Hematocrit 33.4 37-47 % Mean Corpuscular Volume 95.4 80-100 fL Mean Corpuscular Hemoglobin 32.0 25-34 pg Mean Corpuscular Hemoglobin Concent 33.5 32-36 g/dl Platelet Count 222 130-400 K/uL Mean Platelet Volume 10.6 7.4-10.4 fL Neutrophils (%) (Auto) 81.1 % Lymphocytes (%) (Auto) 10.8 % Monocytes (%) (Auto) 6.4 % Eosinophils (%) (Auto) 1.1 % Basophils (%) (Auto) 0.3 % Neutrophils # (Auto) 9.23 1.4-6.5 K/uL Lymphocytes # (Auto) 1.23 1.2-3.4 K/uL Monocytes # (Auto) 0.73 0.11-0.59 K/uL Eosinophils # (Auto) 0.13 0-0.5 K/uL Basophils # (Auto) 0.03 0-0.2 K/uL RDW Standard Deviation 45.2 36.4-46.3 fL RDW Coefficient of Variation 13.0 11.5-14.5 % Immature Granulocyte % (Auto) 0.3 % Immature Granulocyte # (Auto) 0.03 0.00-0.02 K/uL Sodium Level 141 136-145 mmol/L Potassium Level 4.0 3.5-5.1 mmol/L Chloride Level 109 98-107 mmol/L Carbon Dioxide Level 22 21-32 mmol/L Anion Gap 10.0 3-11 mmol/L Blood Urea Nitrogen 13 7-18 mg/dl Creatinine 0.97 0.60-1.20 mg/dl Est Creatinine Clear Calc Drug Dose 50.3 ml/min Estimated GFR () 69.1 Estimated GFR (Non- 59.6 BUN/Creatinine Ratio 13.4 10-20 Random Glucose 85 70-99 mg/dl Calcium Level 8.5 8.5-10.1 mg/dl Microbiology Results 09/03/16 WBC Smear - Final, Resulted 09/03/16 Shiga Toxin Test, Resulted Pending 09/03/16 Stool Culture, Resulted Pending 09/03/16 C.difficile Toxin B Gene (PCR) - Final, Complete Assessment & Plan Acute Sigmoid Diverticulitis- uncomplicated - febrile last evening and this morning, highest temp of 38.4 - Leukocytosis of 11.3 stable - abdominal pain improved - + bowel function CT scan showed gallstones Plan: Continue Conservative management at this time: IV fluids, IV pain medication, IV Cipro/Flagyl Possible advance to clears will discuss with Dr. Miguel Repeat labs in am, trend WBC US of the RUQ abdomen to evaluate for gallstones Dr. Miguel has seen and examined patient, agrees with above
--- NOTE | 2016-09-04 15:10 | DIAGNOSTIC IMAGING REPORT ---
ABDOMINAL ULTRASOUND, RIGHT UPPER QUADRANT HISTORY: gallstone. COMPARISON: Abdomen and pelvis CT 09/02/2016. FINDINGS: Pancreas: The pancreas demonstrates a normal echotexture. Liver: A 1.2 cm cyst within the right hepatic lobe. Gallbladder: No gallbladder wall thickening. A few small stones. CBD: 5 mm. Right kidney: No hydronephrosis. IMPRESSION: Cholelithiasis. No gallbladder wall thickening. Electronically signed by: Justin Watkins M.D. 09/04/2016 3:08 PM Dictated Date/Time: 09/04/2016 3:07 PM
[2016-09-04 16:15] VITALS: BP 112/70; PULSE 87; TEMP 36.7; O2SAT 97
[2016-09-04 17:25] LABS: URINE APPEARANCE CLEAR (CLEAR); URINE BILIRUBIN NEG (NEG); URINE COLOR YELLOW; URINE NITRITE NEG (NEG); URINE SPECIFIC GRAVITY 1.013 (1.000-1.030); UROBILINOGEN NEG (NEG)
[2016-09-04 17:27] LABS: MANUAL MICROSCOPIC REQUIRED? NO; REVIEW REQ? NO
--- NOTE | 2016-09-04 17:41 | Progress Note ---
Progress Note Date of Service Sep 04, 2016. Progress Note Resident Physician Supervision Note: I interviewed and examined the patient. Discussed with Dr. Cui and agree with findings and plan as documented in his separate note. 71 y/o female with left lower quadrant tenderness secondary to acute sigmoid diverticulitis. Upon exam, she appears improved this morning, but it is noted that she had a fever overnight and early today. US of RUQ confirms gall stone as noted on admission CT, but no evidence of acute process. IMPRESSION 1) Acute sigmoid diverticulitis. 2) Cholelithiasis without evidence of cholecystitis PLAN 1) Continue current IV antibiotics. 2) Advance diet. 3) If tolerates diet, continues to improve, and remains afebrile overnight, consider change to PO antibiotics. Documented By: Anand Gregory
--- NOTE | 2016-09-04 21:27 | GASTROENTEROLOGY PROGRESS NOTE ---
DATE: 09/04/2016 SUBJECTIVE: The patient is doing well overall, has only minimal left lower quadrant abdominal pain, is tolerating ice chips well, but would actually like to advance her diet to at least more clear liquid volume. She has been having bowel movements and passing gas. The stools are formed. Her laboratory studies so far show that there is no evidence for routine bacterial cultures or Shiga toxin and C. diff was not processed as the specimens admitted was formed. There were no fecal white blood cells noted. LABORATORY STUDIES: Today show that the white count, although elevated, is decreasing. It is currently 11.38 and was 11.92 yesterday and 13.2 on admission. Hemoglobin is slightly low at 11.2, platelets are normal at 222,000. Serum chemistries show a BUN and creatinine of 13 and 0.97, potassium 4.0. Giardia appears to be cancelled, although it is written as pending and cryptosporidium appears to be pending. Stool occult blood on this September 03 was negative. REVIEW OF SYSTEMS: Otherwise noncontributory based on 14-point exam except for mentioned above. She denies any odynophagia, dysphagia, nausea or vomiting. PHYSICAL EXAMINATION: VITAL SIGNS: Blood pressure 112/70, heart rate 87, respirations 16, 36.7 temperature, pulse ox 97% on room air. GENERAL: The patient is awake, alert and oriented x3. HEENT: Oral mucosa moist. HEART: Normal S1, S2. LUNGS: Clear to auscultation. ABDOMEN: Soft, flat, minimally tender in the left lower quadrant without rebound or guarding. I do not appreciate hepatosplenomegaly. EXTREMITIES: Without clubbing, cyanosis or edema. RECTAL: Deferred at this time. IMPRESSION: The patient with ____ and leukocytosis and CT imaging suggesting a sigmoid diverticulitis without evidence of abscess or perforation. Last evening at 11:00 p.m., the patient did have a temperature of 38.4 and recheck an hour later was 37.7. Regarding additional workup, it is unlikely that this reflects C. diff given the solid pattern on her stool and I would consider repeating a C. diff testing if stools were to become loose and not believe to be related to antibiotic usage. In approximately 6-8 weeks, a colonoscopy should be considered once her diverticulitis has resolved. Conversion to oral antibiotics will be made. She has no known drug allergies. RECOMMENDATIONS: I will make arrangements as an outpatient for a colonoscopy.
[2016-09-04 23:05] VITALS: BP 104/64; PULSE 86; TEMP 36.7; O2SAT 96
[2016-09-05] MEDS ORDERED: DIPHENOXYLATE/ATROPINE 2.5/0.025MG 5ML PO ONE
[2016-09-05] MEDS: CIPROFLOXACIN / D5W 400 MG in PREMIXED IN D5W 200 ML IV SCH ×2 (00:16)
[2016-09-05] MEDS: METRONIDAZOLE / NSS 500 MG in PREMIXED NSS 100 ML IV SCH ×2 (01:44→10:06)
[2016-09-05] MEDS: NSS + 20MEQ KCL 1000ML 1,000 ML IV SCH ×2 (03:29→10:06)
[2016-09-05] MEDS: HEPARIN SOD 5000 UNIT/0.5 ML CARP SQ SCH ×2 (05:46→14:00)
[2016-09-05 06:54] LABS: BASO % 0.5 %; BASO ABS # 0.03 K/uL (0-0.2); COMPLETE YES; EOS % 3.8 %; HEMATOCRIT 32.4 % (37-47); IG% 0.5 %; LYMPH % 28.5 %; LYMPH ABS # 1.88 K/uL (1.2-3.4); MEAN CELL VOLUME 95.6 fL (80-100); MEAN CORPUSCULAR HGB CONC 32.4 g/dl (32-36); MEAN PLATELET VOLUME 10.8 fL (7.4-10.4); MONO % 6.4 %; NEUT % 60.3 %; PLATELET COUNT 261 K/uL (130-400); RED BLOOD COUNT 3.39 M/uL (4.2-5.4)
[2016-09-05 07:29] LABS: BUN/CREATININE RATIO 12.8 (10-20); CALCIUM 8.3 mg/dl (8.5-10.1); CREATININE 0.86 mg/dl (0.60-1.20); POTASSIUM 4.5 mmol/L (3.5-5.1)
--- NOTE | 2016-09-05 08:31 | Surgery Progress Note ---
Surgery Progress Note Date of Service Sep 05, 2016. Subjective Post OP Day: HD # 2 + feeling well, + complaints (diarrhea last evening, feels its due to the flagyl ), + bowel movement, + flatus, + pain controlled, + diet (ordered breakfast, clears), No chest pain, No SOB, No nausea, No vomiting Objective Vital Signs: Date Time Temp Pulse Resp B/P (MAP) Pulse Ox O2 Delivery O2 Flow Rate FiO2 09/05/16 08:03 Room Air 09/04/16 23:38 Room Air 09/04/16 23:05 36.7 86 16 104/64 (77) 96 Room Air 09/04/16 16:15 36.7 87 16 112/70 (84) 97 Room Air 09/04/16 16:10 Room Air General Appearance: WD/WN, no apparent distress Head: normocephalic, atraumatic Neck: trachea midline Respiratory/Chest: lungs clear, normal breath sounds, no respiratory distress, no accessory muscle use Cardiovascular: regular rate, rhythm, no murmur Abdomen: normal bowel sounds, non tender, non distended, soft Extremities: normal inspection Laboratory Results: Results Past 24 Hours Test 09/04/16 09:10 09/04/16 17:00 09/05/16 06:35 Range/Units Urine Color YELLOW Urine Appearance CLEAR CLEAR Urine pH 5.0 4.5-7.5 Urine Specific [place] 1.013 1.000-1.030 Urine Protein NEG NEG Urine Glucose (UA) NEG NEG Urine Ketones 1+ NEG Urine Occult Blood NEG NEG Urine Nitrite NEG NEG Urine Bilirubin NEG NEG Urine Urobilinogen NEG NEG Urine Leukocyte Esterase NEG NEG White Blood Count 6.60 4.8-10.8 K/uL Red Blood Count 3.39 4.2-5.4 M/uL Hemoglobin 10.5 12.0-16.0 g/dL Hematocrit 32.4 37-47 % Mean Corpuscular Volume 95.6 80-100 fL Mean Corpuscular Hemoglobin 31.0 25-34 pg Mean Corpuscular Hemoglobin Concent 32.4 32-36 g/dl Platelet Count 261 130-400 K/uL Mean Platelet Volume 10.8 7.4-10.4 fL Neutrophils (%) (Auto) 60.3 % Lymphocytes (%) (Auto) 28.5 % Monocytes (%) (Auto) 6.4 % Eosinophils (%) (Auto) 3.8 % Basophils (%) (Auto) 0.5 % Neutrophils # (Auto) 3.99 1.4-6.5 K/uL Lymphocytes # (Auto) 1.88 1.2-3.4 K/uL Monocytes # (Auto) 0.42 0.11-0.59 K/uL Eosinophils # (Auto) 0.25 0-0.5 K/uL Basophils # (Auto) 0.03 0-0.2 K/uL RDW Standard Deviation 44.3 36.4-46.3 fL RDW Coefficient of Variation 12.9 11.5-14.5 % Immature Granulocyte % (Auto) 0.5 % Immature Granulocyte # (Auto) 0.03 0.00-0.02 K/uL Sodium Level 141 136-145 mmol/L Potassium Level 4.5 3.5-5.1 mmol/L Chloride Level 112 98-107 mmol/L Carbon Dioxide Level 20 21-32 mmol/L Anion Gap 9.0 3-11 mmol/L Blood Urea Nitrogen 11 7-18 mg/dl Creatinine 0.86 0.60-1.20 mg/dl Est Creatinine Clear Calc Drug Dose 57.8 ml/min Estimated GFR () 79.9 Estimated GFR (Non- 68.9 BUN/Creatinine Ratio 12.8 10-20 Random Glucose 65 70-99 mg/dl Calcium Level 8.3 8.5-10.1 mg/dl Assessment & Plan Acute Sigmoid Diverticulitis- uncomplicated - has remained afebrile since yesterday - Leukocytosis resolved - abdominal pain improved, very little pain today - + bowel function, diarrhea CT scan showed gallstones, US showed no evidence of obstruction or cholecystitis Plan: Diet advanced to clears this am, see how she tolerates, if well, advance diet as tolerated If tolerates clears may change to oral antibiotics D/C tomorrow if does well, will need total of 10-14 days of antibiotic treatment Follow-up with Dr. Miguel in 1 week will need outpatient colonoscopy in 4-[address] Miguel has seen and examined patient, agrees with above
--- NOTE | 2016-09-05 08:38 | Family Medicine Progress Note ---
Progress Note Date of Service Sep 05, 2016. Subjective Pt evaluation today including: conversation w/ patient, physical exam, chart review, lab review, review of studies, review of inpatient medication list Pain: denies pain PO Intake: Clears Voiding: no voiding problems Overnight patient reports non-bloody. watery stool. Night team was notified and gave her Lomotil and her symptoms resolved subsequently . Patient, however, attributes diarrhea to Cipro as opposed and her diverticulitis and has since been refusing Cipro and is currently solely on Flagyl Constitutional: No fever, No chills, No weakness Respiratory: No cough, No wheezing Cardiovascular: No chest pain, No edema, No palpitations Abdomen: + diarrhea (resolved with Lomotil), + problem reported (mild abdominal discomfort), No pain, No nausea, No vomiting Female : No dysuria, No urinary frequency Neurologic: + weakness Skin: No rash, No itch Medications Current Inpatient Medications Medications (Trade) Dose Ordered Sig/Salo Route Start Time Stop Time Status Last Admin Dose Admin Heparin Sodium (Porcine) (Heparin Sq 5000 Unit/0.5ml) 5,000 unit Q8H SQ 09/03/16 06:00 10/03/16 05:59 09/04/16 21:31 5,000 UNIT Acetaminophen (Tylenol Tab) 650 mg Q4H PRN PO 09/03/16 02:00 10/03/16 01:59 09/03/16 23:05 650 MG Al Hydrox/Mg Hydrox/Simethicone (Maalox Max Susp) 15 ml Q4H PRN PO 09/03/16 02:00 10/03/16 01:59 Magnesium Hydroxide (Milk Of Magnesia Susp) 30 ml Q6H PRN PO 09/03/16 02:00 10/03/16 01:59 Polyethylene (Miralax Powder Packet) 17 gm DAILY PRN PO 09/03/16 02:00 10/03/16 01:59 Ondansetron HCl (Zofran Inj) 4 mg Q6H PRN IV 09/03/16 02:00 10/03/16 01:59 Ciprofloxacin/ Dextrose 400 mg/ Prmx 200 ml @ 100 mls/hr Q12H IV 09/03/16 12:00 09/13/16 11:59 09/04/16 12:02 100 MLS/HR Metronidazole 500 mg/Prmx 100 ml @ 100 mls/hr Q8H IV 09/03/16 10:00 09/13/16 09:59 09/05/16 10:06 100 MLS/HR Hard Fat/ Phenylephrine (Anusol Supp) 1 ea UD PRN WA 09/03/16 02:00 10/03/16 01:59 Hydrocortisone (Proctozone Hc 2.5% Crm) 1 appln UD PRN EXT 09/03/16 02:00 10/03/16 01:59 Potassium Chloride/Sodium Chloride 1,000 ml @ 125 mls/hr Q8H IV 09/03/16 03:30 10/03/16 03:29 09/05/16 10:06 125 MLS/HR Bupropion HCl (Wellbutrin-Xl Tab) 150 mg QAM PO 09/03/16 09:00 10/03/16 08:59 09/05/16 09:03 150 MG Miscellaneous Information (Order Awaiting Action) 1 ea QS N/A 09/03/16 08:00 10/03/16 07:59 Morphine Sulfate (MoRPHine SULFATE INJ) 2 mg Q4H PRN IV 09/03/16 02:00 09/17/16 01:59 09/03/16 22:09 2 MG Morphine Sulfate (MoRPHine SULFATE INJ) 4 mg Q4H PRN IV 09/03/16 02:00 09/17/16 01:59 Objective Vital Signs Date Time Temp Pulse Resp B/P (MAP) Pulse Ox O2 Delivery O2 Flow Rate FiO2 09/05/16 08:03 Room Air 09/04/16 23:38 Room Air 09/04/16 23:05 36.7 86 16 104/64 (77) 96 Room Air 09/04/16 16:15 36.7 87 16 112/70 (84) 97 Room Air 09/04/16 16:10 Room Air Physical Exam General Appearance: WD/WN, no apparent distress Eyes: PERRL, EOMI Neck: supple, trachea midline Respiratory/Chest: lungs clear, normal breath sounds, no respiratory distress Cardiovascular: regular rate, rhythm, no murmur Abdomen: normal bowel sounds, non tender, soft Extremities: no pedal edema, no calf tenderness Neurologic/Psychiatric: alert, normal mood/affect, oriented x 3 Skin: warm/dry, no rash Laboratory Results Results Past 24 Hours Test 09/04/16 17:00 09/05/16 06:35 Range/Units Urine Color YELLOW Urine Appearance CLEAR CLEAR Urine pH 5.0 4.5-7.5 Urine Specific [facility] 1.013 1.000-1.030 Urine Protein NEG NEG Urine Glucose (UA) NEG NEG Urine Ketones 1+ NEG Urine Occult Blood NEG NEG Urine Nitrite NEG NEG Urine Bilirubin NEG NEG Urine Urobilinogen NEG NEG Urine Leukocyte Esterase NEG NEG White Blood Count 6.60 4.8-10.8 K/uL Red Blood Count 3.39 4.2-5.4 M/uL Hemoglobin 10.5 12.0-16.0 g/dL Hematocrit 32.4 37-47 % Mean Corpuscular Volume 95.6 80-100 fL Mean Corpuscular Hemoglobin 31.0 25-34 pg Mean Corpuscular Hemoglobin Concent 32.4 32-36 g/dl Platelet Count 261 130-400 K/uL Mean Platelet Volume 10.8 7.4-10.4 fL Neutrophils (%) (Auto) 60.3 % Lymphocytes (%) (Auto) 28.5 % Monocytes (%) (Auto) 6.4 % Eosinophils (%) (Auto) 3.8 % Basophils (%) (Auto) 0.5 % Neutrophils # (Auto) 3.99 1.4-6.5 K/uL Lymphocytes # (Auto) 1.88 1.2-3.4 K/uL Monocytes # (Auto) 0.42 0.11-0.59 K/uL Eosinophils # (Auto) 0.25 0-0.5 K/uL Basophils # (Auto) 0.03 0-0.2 K/uL RDW Standard Deviation 44.3 36.4-46.3 fL RDW Coefficient of Variation 12.9 11.5-14.5 % Immature Granulocyte % (Auto) 0.5 % Immature Granulocyte # (Auto) 0.03 0.00-0.02 K/uL Sodium Level 141 136-145 mmol/L Potassium Level 4.5 3.5-5.1 mmol/L Chloride Level 112 98-107 mmol/L Carbon Dioxide Level 20 21-32 mmol/L Anion Gap 9.0 3-11 mmol/L Blood Urea Nitrogen 11 7-18 mg/dl Creatinine 0.86 0.60-1.20 mg/dl Est Creatinine Clear Calc Drug Dose 57.8 ml/min Estimated GFR () 79.9 Estimated GFR (Non- 68.9 BUN/Creatinine Ratio 12.8 10-20 Random Glucose 65 70-99 mg/dl Calcium Level 8.3 8.5-10.1 mg/dl Assessment and Plan 71 yo F with previous confirmed diverticulosis on colonoscopy, hx of 1 month of intermittent abdominal pain presenting with worsening abdominal pain x3 days, diarrhea x1wk , afebrile with leukocytosis , admitted with Diverticulitis confirmed on CT , placed on IV Cipro and IV Levaquin , clinically improving, currently NPO with ice chips Diverticulitis -improved on exam from arrival - CT consistent with sigmoid diverticulitis -afebrile, pain controlled -diarrhea resolved Leukocytosis trending down -Patient refusing Cipro due to episodes of diarrhea overnight -D/c Flagyl/Cipro, switched to PO Augmentin -Stool cx's negative, Cdiff neg. -Advance diet CKD Stage III -stable -Cr .86 Depression -c/w Wellbutrin DVT prophylaxis -Heparin, SCD Resident Physician Supervision Note: I was present with Dr. Cui during the history and exam. I also revisited the patient afternoon by myself. I discussed the case with the resident and agree with the findings and plan as documented in the note. Any exceptions or clarifications are listed here: Upon examination, the patient appears improved. She is afebrile. Her leukocytosis has resolved. With palpation of the left lower quadrant, there is no tenderness appreciated. Unfortunate the patient had increased loose stools overnight which she attributes to the ciprofloxacin. As such, and after some Internet research that she did overnight, she is refusing subsequent doses of ciprofloxacin. IMPRESSION 1) acute sigmoid diverticulitis, clinically improving 2) incomplete antibacterial coverage as she is now on Flagyl alone since she has refused ciprofloxacin. I suspect the loose stools are secondary to diverticulitis and not necessarily ciprofloxacin. PLAN 1) discontinue the Flagyl was well as a ciprofloxacin the patient is refusing 2) since she is tolerating by mouth, start Augmentin 875 mg by mouth twice a day 3) Will try first dose this afternoon; if she's tolerating, the patient could be discharged later today. If she continued to have some upset GI, could continue gentle IV fluids overnight, and discharge in a.m. 4) she will need a colonoscopy in 6-8 weeks 5) the change in antibiotics as described above was discussed with gastroenterology as well. Documented By: Anand Gregory Discharge planning: home Resident Tracking Resident Involvement: Resident Care Provided Care Provided: Adult [facility]
[2016-09-05] MEDS: BuPROPion XL 150 MG TABCR PO SCH (09:03)
[2016-09-05 15:49] VITALS: BP 112/73; PULSE 76; TEMP 36.6; O2SAT 95
[2016-09-05 15:57] LABS: CRYPTOSPORIDIUM AG TC 37213 NOT DETECTED (NOT DETECTED); O&P GIARDIA AG NOT DETECTED (NOT DETECTED)
[2016-09-05] MEDS ORDERED: AMOXICILLIN/CLAVULANATE TAB 875 MG TAB PO SCH ×2 (16:00→17:45)
--- NOTE | 2016-09-05 17:33 | Discharge Instructions ---
Discharge Instructions Date of Service Sep 05, 2016. Admission Reason for Admission: Sigmoid Diverticulitis Discharge Discharge Diagnosis / Problem: Diverticulitis Discharge Goals Goal(s): Decrease discomfort, Improve function, Increase independence, Improve disease control, Improve nutritional status, Learn about illness, Diagnostic testing, Therapeutic intervention, Screening, Prevent Disease Progression, Specific goals Activity Recommendations Activity Limitations: resume your previous activity . Instructions / Follow-Up Instructions / Follow-Up You have been diagnosed with Diverticulitis of the sigmoid colon,and are currently under treatment with Antibiotic (Augmentin) Please Follow up with your PCP within 1 wk Please take medication as prescribed If your symptoms return or you feel worsening abdominal pain, diarrhea fevers, chills, , nausea, vomiting while on antibiotics , please call PCP office or come to Emergency Department Current Hospital Diet Patient's current hospital diet: Regular Diet Discharge Diet Recommended Diet: Regular Diet (Low residue) Pending Studies Studies pending at discharge: no Medical Emergencies . Who to Call and When: Medical Emergencies: If at any time you feel your situation is an emergency, please call 911 immediately. . Non-Emergent Contact Non-Emergency issues call your: Primary Care Provider Call Non-Emergent contact if: you have a fever, your pain is not controlled, your pain is worsening, your pain is unusual for you, your pain is concerning you, you have any medication questions . . "Provider Documentation" section prepared by Jakub Cui. . VTE Core Measure Inpt VTE Proph given/why not?: Unfractionated heparin SQ
[2016-09-05] MEDS ORDERED: AMOX875T PO (17:44)
--- NOTE | 2016-09-05 18:29 | GASTROENTEROLOGY PROGRESS NOTE ---
DATE: 09/05/2016 SUBJECTIVE: The patient is feeling better. I advanced her diet which was tolerated well. She did avoid the high fiber, high residue foods that were provided. At the present time she was on Cipro and Flagyl IV, but was experiencing diarrhea with the former. I did have an opportunity to speak with Dr. Mcginnis in the late morning regarding her concerns about antibiotics and the choices that are available. It is unclear if the ciprofloxacin is inducing an antibiotic-induced diarrhea. She historically had some formed stools and therefore C. diff was not obtained. VITAL SIGNS: Today blood pressure is 104/64, respirations 16, heart rate 86, temperature 36.7, 96% on room air. LABORATORY STUDIES: Today, white count is markedly improved now normal at 6.6, hemoglobin 10.5, MCV 95.6, platelets of 261. Serum chemistry normal potassium 4.5, BUN and creatinine are 11 and 0.86 today. Giardia was not detected. Cryptosporidium was not detected. PHYSICAL EXAMINATION: Otherwise unremarkable. HEART: Normal S1, S2. LUNGS: Clear to auscultation. ABDOMEN: Soft without any appreciable tenderness on palpation particularly in the left lower quadrant region. There is no rebound or guarding. I do not appreciate hepatosplenomegaly. EXTREMITIES: Without clubbing, cyanosis or edema. RECTAL: Deferred. IMPRESSION: The patient has concerns with the antibiotic selections and concern that they can either affect her stool patterns or influence her kidneys. She did ask that I contact Dr. Billingsley, her administrative services specialist, which I did do. The antibiotic choices for diverticulitis include Cipro+Flagyl, Augmentin, or Bactrim + Flagyl. The patient is adamant for a non Cipro floxacin based regimen. I did speak with Dr. Billingsley and he believes that either the Augmentin or the Bactrim and Flagyl is reasonable provided that the patient drinks plenty of water for hydration purposes and for renal perfusion. Overall, preferably Augmentin would be preferred and the patient is fully aware that any antibiotic regimen has the potential for causing diarrhea. If Augmentin 875 q. 12 is the choice and if stools maintain a loose pattern then would retest for Clostridium difficile and consider addition of Flagyl 500 q.8 for a total of 14 days. We will plan on colonoscopy in approximately 6-8 weeks once this acute attack of diverticulitis is completed. All questions answered. MTDD
[2016-09-05 19:31] VITALS: BP 112/73; PULSE 76; TEMP 36.6; O2SAT 95
--- NOTE | 2016-09-06 06:04 | Discharge Summary ---
Discharge Summary Date of Service Sep 06, 2016. (Jakub Cui MD) Discharge Summary Admission Date: Sep 03, 2016 at 02:04 Discharge Date: Sep 05, 2016 Discharge Disposition: Home Principal Diagnosis: Diverticulitis Problems/Secondary Diagnoses: CKD Procedures: ABDOMEN 2VIEW W/PA CHEST RTN CLINICAL HISTORY: abd pain, diarrhea FEVER, BODY ACHES COMPARISON STUDY: 03/14/2013 FINDINGS: Erect chest reveals emphysema. As a hiatal hernia. There is no focal pulmonary consolidation. Wispy opacities in the left midlung zone are likely chronic.] Supine views the abdomen reveal no abnormally dilated loops of large or small bowel. There are no transition zones indicate bowel obstruction. There are few tiny calcifications projected over the right renal shadow. Small calculi cannot be excluded. IMPRESSION: No evidence of bowel obstruction. No evidence of free air. CT SCAN OF THE ABDOMEN AND PELVIS WITHOUT IV CONTRAST IMPRESSION: 1. Suboptimal examination without oral and IV contrast. 2. Moderate sigmoid diverticulosis with evidence of acute sigmoid diverticulitis. No intraperitoneal free air is identified. There is no definite evidence of abscess on this unenhanced examination. 3. Cholelithiasis. 4. Moderate hiatal hernia. 5. Additional findings as above. ABDOMINAL ULTRASOUND, RIGHT UPPER QUADRANT HISTORY: gallstone. COMPARISON: Abdomen and pelvis CT 09/02/2016. FINDINGS: Pancreas: The pancreas demonstrates a normal echotexture. Liver: A 1.2 cm cyst within the right hepatic lobe. Gallbladder: No gallbladder wall thickening. A few small stones. CBD: 5 mm. Right kidney: No hydronephrosis. IMPRESSION: Cholelithiasis. No gallbladder wall thickening. ROS Constitutional: No fever, No chills, No weakness Respiratory: No cough, No wheezing Cardiovascular: No chest pain, No edema, No palpitations Abdomen: + diarrhea (resolved with Lomotil), + problem reported (mild abdominal discomfort), No pain, No nausea, No vomiting Female : No dysuria, No urinary frequency Neurologic: + weakness Skin: No rash, No itch Consultations: General Surgery Gastroenterology (Jakub Cui MD) Medication Reconciliation New Medications: Amoxicillin & Pot Clavulanate (Augmentin 875-125 mg) 1 Tab Tab 1 TAB PO BID, #12 TAB Continued Medications: Azelaic Acid (Finacea) 50 Gm Gel 1 APPLN TOP DAILY Bupropion Hcl (Wellbutrin Xl) 150 Mg Tab 1 TAB PO QAM for 30 Days, #30 TAB 2 Refills Discharge Exam ROS Constitutional: No fever, No chills, No weakness Respiratory: No cough, No wheezing Cardiovascular: No chest pain, No edema, No palpitations Abdomen: + diarrhea (resolved with Lomotil), + problem reported (mild abdominal discomfort), No pain, No nausea, No vomiting Female : No dysuria, No urinary frequency Neurologic: + weakness Skin: No rash, No itch Physical Exam General Appearance: WD/WN, no apparent distress Eyes: PERRL, EOMI Neck: supple, trachea midline Respiratory/Chest: lungs clear, normal breath sounds, no respiratory distress Cardiovascular: regular rate, rhythm, no murmur Abdomen: normal bowel sounds, non tender, soft Extremities: no pedal edema, no calf tenderness Neurologic/Psychiatric: alert, normal mood/affect, oriented x 3 Skin: warm/dry, no rash (Jakub Cui MD) Hospital Course HPI Patient is a pleasant 71-year-old female, with back on history of CKD stage III , melanoma, anxiety/depression, mild asthma, presents the emergency department tonight with ongoing abdominal pain. She notes that this is not a new pain for her, that it is been on for the past several months. In addition she has had on and off episodes of diarrhea. These were frequent but intermittent and somewhat unpredictable, and was associated with mild lower abdominal pain. However in the past 3 days she notes that the pain has gotten much worse, and that it occurs much more predictably with bowel movements. At the present time she describing pain across her lower abdomen and pelvis, favoring more so left side as well as lower back pain. She describes as a sharp, currently 4 out of 10 pain. She states that at home prior to arrival the pain was getting much worse, rating it 9/10 particularly when she is trying to have bowel movements. She also reports an incomplete sense of voiding after sitting on the toilet for a bowel movement. In addition she reports a rectal discomfort, the states she has hemorrhoids. She does report 2 occasions of only a faint amount of pink tinge on her stool in the past couple days. She denies any dark tarry stool. She denies seeing any mucus in the stool.She denies ongoing nausea or vomiting. She states that she hated a restaurant 2 weeks ago and did have some nausea following that meal but has since been fine from this standpoint.She has not had any fevers chills or night sweats, though states that she feels warm. She's not had any changes in weight.There is no history of recent foreign travel and no recent use of antibiotics. States that she travels frequently between [place] in [place] to care for her daughter who has significant medical needs.She states her last colonoscopy was 10 years ago, this was done by Dr. Eckert. She' s never had an EGD. Course: Patient on arrival to ED was complaining of abdominal pain, rectal pain and pain with bowel movements. She was afebrile. Labs revealed a leukocytosis of 13, 000. Labs were otherwise unremarkable. CT Abdomen/Pelvus read by statrad showed wall thickening and inflammatory changes involving the distal sigmoid colon compatible with diverticulitis. Air-containing outpouching at the anterior aspect possible prominent diverticulum possibility of contained perforation or early abscess not entirely excluded. Patient was admitted and starte don IV Cipro and Flagyl. Surgery And Gastroenterology were consulted. Following read of ct Abdomen/pelvis by inhouse rADIOLOGY by it was interpreted as sigmoid diverticulitis with no definite evidence of abcess. CT was without contrast do to patient's hx of CKD. She was also foufn to have cholelithiasis. Abdominal U/S was performed showing no gall bladder wall thickening. Patient received dual antibiotic therapy with IV flagyl and IV Cipro for 09/04, 09/05. Patient showed clinical improvement during her hospital stay. On the night of patient had a bout of diarrhea and subsequently refused treatment with IV Cipro to which she attributed her symptoms. Patient was informed that diarrhea was more likely due to Diverticulitis, however,patient continued to refuse cipro. Subsequently, IV Cipro and Flagyl were discontinued and she was switched to Augmentin and discharged on augmentin for 12 more days of abx treatment. Total Time Spent: Less than 30 minutes This includes examination of the patient, discharge planning, medication reconciliation, and communication with other providers. (Jakub Cui MD) Resident Physician Supervision Note: I was present with Dr. Cui during the history and exam. I discussed the case with the resident and agree with the findings and plan as documented in the note. Documented By: Anand Gregory Total Time Spent: Less than 30 minutes (Anand Gregory,D.O.) Discharge Instructions Please refer to the electronic Patient Visit Report (Discharge Instructions) for additional information. (Jakub Cui MD) Additional Copies To Sher Perez M.D.
== END 2016-09-05 20:05 | disposition home or self-care (01) | DRG 392 ==
LOC: C.EDB 22:14 → C.MSW 09-03 02:04 → ENRESERV 09-03 02:28
PROVIDERS: ADMIT Student in an Organized Health Care Education/Training Program; ATTEND Family Medicine
DX: K57.92 Diverticulitis of intestine, part unspecified, without perforation or abscess without bleeding (principal); N18.3 Chronic kidney disease, stage 3 (moderate); F32.9 Major depressive disorder, single episode, unspecified; F41.9 Anxiety disorder, unspecified; J45.909 Unspecified asthma, uncomplicated; K52.9 Noninfective gastroenteritis and colitis, unspecified; K80.20 Calculus of gallbladder without cholecystitis without obstruction; K64.9 Unspecified hemorrhoids; Z79.899 Other long term (current) drug therapy

== ENCOUNTER → 2017-04-17 | Outpatient (CLI) | payer BC ==
[~2017-04-17] MED LIST changes: -ASCO500T16 PO; -AZEL15GE TOP; -BUPR100T8 PO; -CHOL100010 PO; +FNCG50 TOP; -OMEG10007 PO
--- NOTE | 2017-04-17 09:02 | DIAGNOSTIC IMAGING REPORT ---
LUMBAR SPINE 5 VIEWS CLINICAL HISTORY: Low back pain. FINDINGS: 5 views of the lumbar spine are correlated with abdominal CT dated 09/02/2016. The skeletal structures are osteopenic. Vertebral body height and alignment are maintained throughout the lumbar spine. There is no radiographic evidence of fracture or malalignment. The transverse and spinous processes appear intact. There is no evidence of spondylolysis. Mild facet arthropathy is present in the lower lumbar spine. Mild disc space narrowing is seen at L5-S1. The remaining disc spaces appear preserved. Tiny anterior osteophytes are seen throughout. The bony pelvis is intact as imaged. Mild sclerotic change is noted in the sacroiliac joints. No bowel obstruction is identified. Scattered foci of atherosclerotic calcification are noted in the abdominal aorta. IMPRESSION: 1. No acute bony abnormality is seen involving the lumbar spine. 2. Osteopenia and mild spondylotic change as above. Dictated: 04/17/2017 8:46 AM Transcribed: 04/17/2017 9:01 AM [facility] Electronically signed by: Corey Espinoza M.D. 04/17/2017 9:18 AM Dictated Date/Time: 04/17/2017 8:46 AM
[2017-04-17 10:55] LABS: BASO % 1.1 %; BASO ABS # 0.06 K/uL (0-0.2); EOS % 4.6 %; EOS ABS # 0.25 K/uL (0-0.5); HEMATOCRIT 41.1 % (37-47); HEMOGLOBIN 13.5 g/dL (12.0-16.0); IG# 0.01 K/uL (0.00-0.02); LYMPH ABS # 2.18 K/uL (1.2-3.4); MEAN CELL VOLUME 95.1 fL (80-100); MEAN CORPUSCULAR HEMOGLOBIN 31.3 pg (25-34); MEAN CORPUSCULAR HGB CONC 32.8 g/dl (32-36); MEAN PLATELET VOLUME 11.7 fL (7.4-10.4); MONO % 6.8 %; MONO ABS # 0.37 K/uL (0.11-0.59); NEUT % 47.3 %; NEUT ABS # 2.58 K/uL (1.4-6.5); PLATELET COUNT 279 K/uL (130-400); RED CELL DISTRIBUTION WIDTH CV 13.2 % (11.5-14.5); WHITE BLOOD COUNT 5.45 K/uL (4.8-10.8)
[2017-04-17 11:25] LABS: HEMOGLOBIN A1C 5.1 % (4.5-5.6)
[2017-04-17 11:28] LABS: ALBUMIN 3.6 gm/dl (3.4-5.0); ALT/SGPT 25 U/L (12-78); BLOOD UREA NITROGEN 13 mg/dl (7-18); CARBON DIOXIDE 29 mmol/L (21-32); CHOLESTEROL 198 mg/dl (0-200); CREATININE 1.18 mg/dl (0.60-1.20); GLUCOSE 91 mg/dl (70-99); POTASSIUM 3.8 mmol/L (3.5-5.1); SODIUM 139 mmol/L (136-145)
[2017-04-17 11:37] LABS: ALKALINE PHOSPHATASE 73 U/L (45-117); AST/SGOT 20 U/L (15-37); LDL CHOLESTEROL CALCULATED 125 mg/dl; TOTAL PROTEIN 7.6 gm/dl (6.4-8.2)
== END | disposition home or self-care (01) ==
LOC: C.RADBC 08:07
PROVIDERS: ATTEND Internal Medicine Geriatric Medicine
DX: M54.5 Low back pain (principal); R25.2 Cramp and spasm; J45.909 Unspecified asthma, uncomplicated; E78.5 Hyperlipidemia, unspecified; N18.3 Chronic kidney disease, stage 3 (moderate); R73.9 Hyperglycemia, unspecified

== ENCOUNTER → 2017-05-08 | Outpatient (CLI) | payer BC | END | disposition home or self-care (01) | LOC: C.LAB1850 16:37 | PROVIDERS: ATTEND Internal Medicine Geriatric Medicine | DX: R35.0 Frequency of micturition (principal); N18.3 Chronic kidney disease, stage 3 (moderate) ==

== ENCOUNTER → 2017-06-09 | Outpatient (CLI) | payer BC | END | disposition home or self-care (01) | LOC: C.PAPS 10:23 | PROVIDERS: ATTEND Obstetrics & Gynecology | DX: K76.89 Other specified diseases of liver (principal) ==

== ENCOUNTER → 2017-06-16 | Outpatient (CLI) | payer BC ==
--- NOTE | 2017-06-16 10:52 | DIAGNOSTIC IMAGING REPORT ---
THORACIC SPINE 3-VIEWS CLINICAL HISTORY: BACK PAIN COMPARISON STUDY: No previous studies for comparison. FINDINGS: The paraspinal line is not displaced. There is a minor scoliosis. There are minor degenerative changes present. No fractures subluxations or destructive lesions are visualized. IMPRESSION: No fractures subluxations or destructive lesions are visualized. Electronically signed by: Que Toledo M.D. 06/16/2017 10:51 AM Dictated Date/Time: 06/16/2017 10:50 AM
== END | disposition home or self-care (01) ==
LOC: C.RDSM 10:32
PROVIDERS: ATTEND Internal Medicine
DX: M54.9 Dorsalgia, unspecified (principal)

== ENCOUNTER → 2017-06-25 | Outpatient (CLI) | payer BC ==
--- NOTE | 2017-06-25 11:46 | DIAGNOSTIC IMAGING REPORT ---
MRI OF THE BRAIN WITHOUT IV CONTRAST CLINICAL HISTORY: Right-sided headaches. History of melanoma. COMPARISON STUDY: No priors. TECHNIQUE: MRI of the brain was performed utilizing various T1 and T2-weighted sequences in the axial, sagittal, and coronal planes. IV contrast was not administered for this examination. FINDINGS: Brain parenchyma: There is minimal minimal periventricular microangiopathic disease. There is no hemorrhage or mass effect. There is no restricted diffusion to suggest acute ischemia. Rene-white matter differentiation is preserved. No extra-axial fluid collection is seen. The cerebellar tonsils are normal in configuration. Ventricles, sulci, and cisterns: Normal in configuration. Pituitary and sella: Unremarkable. Intracranial vasculature: Normal flow voids are maintained at the skull base. Orbits: The bony orbits are grossly intact. Orbital contents are normal in appearance. Sinuses and mastoids: Clear. Calvarium: Unremarkable. Cervical cord: Partially visualized cervical spinal cord is normal in morphology and signal intensity. IMPRESSION: No acute intracranial abnormality. Electronically signed by: Corey Espinoza M.D. 06/25/2017 11:45 AM Dictated Date/Time: 06/25/2017 11:40 AM
== END | disposition home or self-care (01) ==
LOC: C.MRIBC 11:02
PROVIDERS: ATTEND Dermatology
DX: R51 Headache (principal)

== ENCOUNTER → 2017-07-29 | Outpatient (CLI) | payer BC ==
--- NOTE | 2017-07-29 16:00 | DIAGNOSTIC IMAGING REPORT ---
CHEST 2 VIEWS ROUTINE HISTORY: ACUTE BRONCHITIS COMPARISON: Chest 09/02/2016. FINDINGS: The lungs are hyperexpanded with apical predominant emphysematous changes. Small hiatus hernia. No focal lung consolidations to suggest pneumonia. No evidence for pulmonary edema. The heart is normal in size. IMPRESSION: 1. No acute process within the chest. 2. Emphysema. 3. Small hiatus hernia. Electronically signed by: Justin Watkins M.D. 07/29/2017 3:58 PM Dictated Date/Time: 07/29/2017 3:57 PM
== END | disposition home or self-care (01) ==
LOC: C.RAD 15:34
PROVIDERS: ATTEND Physician Assistant Medical
DX: J20.9 Acute bronchitis, unspecified (principal); J43.9 Emphysema, unspecified; K44.9 Diaphragmatic hernia without obstruction or gangrene

== ENCOUNTER → 2017-10-07 | Outpatient (CLI) | payer BC | END | disposition home or self-care (01) | LOC: C.LAB1850 14:15 | PROVIDERS: ATTEND Physician Assistant Medical | DX: E53.8 Deficiency of other specified B group vitamins (principal); R35.0 Frequency of micturition ==

== ENCOUNTER → 2017-11-10 | Outpatient (CLI) | payer BC | END | disposition home or self-care (01) | LOC: C.LAB1850 11:17 | PROVIDERS: ATTEND Physician Assistant Medical | DX: E53.8 Deficiency of other specified B group vitamins (principal) ==